=== PATIENT | female | born 1970 | race Caucasian/White ===

== ENCOUNTER 2017-05-19 11:42 | Emergency (ER) | payer OTHER ==
[~2017-05-19] VITALS: Ht 158.8 cm; Wt 68.5 kg
[~2017-05-19 11:42] MED LIST: ALBUAER9 INH; ASPI81TA21 PO; ATOR80TA PO; BUPRTAB51 PO; CLOP1TAB54 PO; CYM/30 PO; DULO60CA44 PO; ERGO500037 PO; FENT50DI19 TD; HYDR-4079 PO; LPR25 PO; MECL50TA PO; MELA1TAB54 PO; MRLP17 PO; NORT50CA PO; PANT40TA PO; RANI300T2 PO; SUCR1TAB29 PO
[2017-05-19 11:47] VITALS: TEMP 36.8; Ht 158.8 cm; Wt 68.5 kg
[2017-05-19] MEDS ORDERED: OMEG10007 PO (12:34)
[2017-05-19] MEDS ORDERED: NRN300 (12:34)
[2017-05-19] MEDS ORDERED: COEN10CA5 (12:34)
[2017-05-19 13:02] LABS: BASO % 0.2 %; BASO ABS # 0.03 K/uL (0-0.2); EOS % 0.7 %; EOS ABS # 0.09 K/uL (0-0.5); HEMATOCRIT 41.3 % (37-47); HEMOGLOBIN 14.1 g/dL (12.0-16.0); IG# 0.02 K/uL (0.00-0.02); LYMPH % 24.2 %; LYMPH ABS # 2.95 K/uL (1.2-3.4); MEAN CELL VOLUME 87.5 fL (80-100); MEAN CORPUSCULAR HEMOGLOBIN 29.9 pg (25-34); MEAN CORPUSCULAR HGB CONC 34.1 g/dl (32-36); MONO % 8.3 %; MONO ABS # 1.01 K/uL (0.11-0.59); NEUT % 66.4 %; NEUT ABS # 8.11 K/uL (1.4-6.5); PLATELET COUNT 261 K/uL (130-400); RED CELL DISTRIBUTION WIDTH CV 13.2 % (11.5-14.5); RED CELL DISTRIBUTION WIDTH SD 42.3 fL (36.4-46.3); WHITE BLOOD COUNT 12.21 K/uL (4.8-10.8)
--- NOTE | 2017-05-19 13:22 | DIAGNOSTIC IMAGING REPORT ---
L KNEE 3 VIEWS CLINICAL HISTORY: left knee pain/effusion pain COMPARISON: None. DISCUSSION: The bones and joint spaces appear intact. There is no evidence of fracture, dislocation or bony disease. Joint effusion. IMPRESSION: Joint effusion. Otherwise negative study. The above report was generated using voice recognition software. It may contain grammatical, syntax or spelling errors. Electronically signed by: Robert Foster M.D. 05/19/2017 1:21 PM Dictated Date/Time: 05/19/2017 1:20 PM
[2017-05-19 13:24] LABS: CALCIUM 9.2 mg/dl (8.5-10.1); CREATININE 0.55 mg/dl (0.60-1.20); POTASSIUM 3.6 mmol/L (3.5-5.1); URIC ACID 3.7 mg/dl (2.6-7.2)
[2017-05-19] MEDS ORDERED: DOXYCYCLINE HYCLATE 100 MG CAP PO STA (14:05)
[2017-05-19] MEDS ORDERED: DOXY100C PO (14:07)
--- NOTE | 2017-05-19 14:07 | EMERGENCY ROOM VISIT NOTE ---
ED Visit Note First contact with patient: 12:09 CHIEF COMPLAINT: Left knee pain and swelling HISTORY OF PRESENT ILLNESS: This 46-year-old female patient presents to the emergency department complaining of 2-3 week long history of left knee pain. She states approximately 1 week ago, she began experiencing swelling, and the swelling significantly worsened today. She denies any injury or redness. She has not seen her PCP. She states she is unable to flex the knee due to pain. The patient does chronically take hydrocodone and fentanyl patches, and states her pain persists despite these medications. She denies any known tick bites, denies any history of gout. She describes the pain as a pressure sensation, and rates it 7/10. There is no calf tenderness or redness. Patient has not recently traveled. The patient is a current smoker, but uses no hormone replacement therapy. There is been no previous injury to this knee. The patient denies bruising. There is pain superiorly to the knee joint. The patient states they are able to walk on it with the assistance of cane. No numbness or tingling. No ankle, foot or hip pain. She does report significant fatigue, malaise, and myalgias over the past few weeks. REVIEW OF SYSTEMS: A 6 system review of systems was completed with positives and pertinent negatives listed in the HPI. ALLERGIES: None PMH: Chronic pain SOCIAL HISTORY: The patient lives locally with family. She denies drug, alcohol use. The patient admits to smoking 1 pack of cigarettes per day. PHYSICAL EXAM: Vital Signs: Reviewed Nurse's notes, vital signs stable. GENERAL : This is a 46-year-old white female, no acute distress, but appears in pain, well-developed, well-nourished. MENTAL STATUS: Alert, oriented to person place and time, and cooperative. MUSCULOSKELETAL: The left knee is moderately swollen. There is no ecchymosis. There is joint effusion present. The patient is tender superiorly to the knee joint. There is mild joint line tenderness. The patella does appropriately subluxate. Range of motion is limited due to pain and swelling. Strength of the quads and hamstrings is 5/5. Ken's is negative. Louann's and Anterior Drawer tests are negative. There is discomfort , but no laxity with varus and valgus stressing. The foot and toes are warm and well-perfused. Dorsalis pedis pulse 2+. Sensation to pain and light touch is intact. Capillary refill less than 2 seconds. RADIOLOGY: L KNEE 3 VIEWS CLINICAL HISTORY: left knee pain/effusion pain COMPARISON: None. DISCUSSION: The bones and joint spaces appear intact. There is no evidence of fracture, dislocation or bony disease. Joint effusion. IMPRESSION: Joint effusion. Otherwise negative study. The above report was generated using voice recognition software. It may contain grammatical, syntax or spelling errors. Electronically signed by: Robert Foster M.D. 05/19/2017 1:21 PM Dictated Date/Time: 05/19/2017 1:20 PM EMERGENCY DEPARTMENT COURSE: I examined the patient. She presents with spontaneous knee pain with effusion, and denies any injury. X-rays of the left knee were reviewed by myself and read by radiology and reveal a joint effusion, but no bony abnormality. Labs showed elevated white blood cell count of 12, 000. ESR was elevated at 22. C-reactive protein was slightly elevated at 0.32 , and PRP was without significant renal, electrolyte abnormalities. Uric acid level was normal at 3.7. Lyme IgG and IgM testing were both positive. Western blot is pending. I discussed the findings with the patient at bedside. She was given an initial dose of doxycycline. The patient does already have chronic pain medication. She was encouraged to start the antibiotics and follow -up with orthopedics if no improvement in her symptoms within 1 week. She was encouraged to follow-up with her primary care provider regarding ongoing management of the Lyme disease. I did offer the patient crutches or a walker, but she states she is able to ambulate with her cane. The patient was agreeable to this plan of care. The patient was seen and assessed by Dr. Sagastume, who was in agreement with my assessment and plan. Discharge instructions reviewed. The patient was discharged home in good condition. I attest that I have personally reviewed the patient's current medication list. Patient was found to have normal blood pressure on screening and does not require follow-up. Etiologies such as soft tissue injury, fracture, dislocation, neurovascular compromise, compartment syndrome, Lyme disease, gout, effusion, abscess, infection, as well as others were entertained. DIAGNOSIS: Lyme arthritis of the left knee Current/Historical Medications Scheduled Aspirin Enteric Coated (Ecotrin Or Generic), 81 MG PO DAILY Atorvastatin (Lipitor), 80 MG PO DAILY Clopidogrel Bisulfate (Plavix), 75 MG PO DAILY Doxycycline Hyclate (Vibramycin), 100 MG PO BID Ergocalciferol (Vitamin D 93488 Unit), 50,000 UNIT PO WK Metoprolol Tartrate (Lopressor), 12.5 MG PO BID Pantoprazole Sodium (Protonix), 40 MG PO DAILY Scheduled PRN Hydrocodone/Acetaminophen 10MG/325MG ([place] 10MG/325MG), 1 TAB PO BID PRN for Pain Miscellaneous Medications Coenzyme Q10 (Ubidecarenone) (Co Q 10) Fish Oil ([place]-3), 1 CAP PO Gabapentin (Gabapentin) Allergies Coded Allergies: Methadone (Unverified Allergy, Intermediate, "deathly sick", 05/19/17) Vital Signs Date Time Temp Pulse Resp B/P (MAP) Pulse Ox O2 Delivery O2 Flow Rate FiO2 05/19/17 14:18 60 16 123/73 98 Room Air 05/19/17 11:47 36.8 76 16 120/79 97 Room Air Laboratory Results 05/19/17 12:50 Red Blood Count 4.72, Mean Corpuscular Volume 87.5, Mean Corpuscular Hemoglobin 29.9, Mean Corpuscular Hemoglobin Concent 34.1, Mean Platelet Volume 10.0, Neutrophils (%) (Auto) 66.4, Lymphocytes (%) (Auto) 24.2, Monocytes (%) (Auto) 8.3, Eosinophils (%) (Auto) 0.7, Basophils (%) (Auto) 0.2, Neutrophils # (Auto) 8.11, Lymphocytes # (Auto) 2.95, Monocytes # (Auto) 1.01, Eosinophils # (Auto) 0.09, Basophils # (Auto) 0.03 05/19/17 12:50 Test 05/19/17 12:50 White Blood Count 12.21 K/uL (4.8-10.8) Red Blood Count 4.72 M/uL (4.2-5.4) Hemoglobin 14.1 g/dL (12.0-16.0) Hematocrit 41.3 % (37-47) Mean Corpuscular Volume 87.5 fL (80-100) Mean Corpuscular Hemoglobin 29.9 pg (25-34) Mean Corpuscular Hemoglobin Concent 34.1 g/dl (32-36) Platelet Count 261 K/uL (130-400) Mean Platelet Volume 10.0 fL (7.4-10.4) Neutrophils (%) (Auto) 66.4 % Lymphocytes (%) (Auto) 24.2 % Monocytes (%) (Auto) 8.3 % Eosinophils (%) (Auto) 0.7 % Basophils (%) (Auto) 0.2 % Neutrophils # (Auto) 8.11 K/uL (1.4-6.5) Lymphocytes # (Auto) 2.95 K/uL (1.2-3.4) Monocytes # (Auto) 1.01 K/uL (0.11-0.59) Eosinophils # (Auto) 0.09 K/uL (0-0.5) Basophils # (Auto) 0.03 K/uL (0-0.2) RDW Standard Deviation 42.3 fL (36.4-46.3) RDW Coefficient of Variation 13.2 % (11.5-14.5) Immature Granulocyte % (Auto) 0.2 % Immature Granulocyte # (Auto) 0.02 K/uL (0.00-0.02) Erythrocyte Sedimentation Rate 22 mm/hr (0-21) Anion Gap 5.0 mmol/L (3-11) Est Creatinine Clear Calc Drug Dose 114.9 ml/min Estimated GFR () 128.6 Estimated GFR (Non- 110.9 BUN/Creatinine Ratio 20.3 (10-20) Uric Acid 3.7 mg/dl (2.6-7.2) Calcium Level 9.2 mg/dl (8.5-10.1) C-Reactive Protein 0.32 mg/dl (0-0.29) Lyme Disease IgG Antibody POS (NEG) Medications Administered Medications (Trade) Dose Ordered Sig/Jaye Route Start Time Stop Time Status Last Admin Dose Admin Doxycycline Hyclate (Vibramycin Cap) 100 mg NOW STAT PO 05/19/17 14:05 05/19/17 14:06 DC 05/19/17 14:13 100 MG Departure Information Impression Primary Impression: Lyme arthritis of knee Dispostion Home / Self-Care Condition GOOD Prescriptions Doxycycline Hyclate (VIBRAMYCIN) 100 Mg Cap 100 MG PO BID for 21 Days, #42 CAP Prov: Kenisha RecioJANINE 05/19/17 Referrals Robert Peña M.D. (PCP) Beka Mathews D.O. Patient Instructions ED Lyme Disease, [facility] Additional Instructions You were seen in the emergency department today for left knee swelling and pain. Lyme disease testing here in the ED was positive. You have been prescribed Doxycycline to be taken as prescribed for 21 days. This is an antibiotic. All antibiotics have the potential to cause diarrhea. Stop this medication and contact a medical provider if you were to develop any significant adverse side effects including: wheezing, shortness of breath, passing out, vomiting, or a diffuse rash. Always take antibiotics as directed and COMPLETE the ENTIRE course regardless of the improvement of your symptoms. Be sure to eat prior to taking this antibiotic. Do not eat or drink milk products immediately before taking this medication. Make sure that the pill is completely swallowed each time. Protect yourself with sunscreen while on this antibiotic as it increases your skin's sensitivity to the light and cause bad sunburns. Please take your regularly prescribed pain medication. Use the cane you have to help with ambulation. Follow-up with orthopedics if no improvement within 1 week. Please follow-up with your primary care provider regarding ongoing treatment and management of the Lyme disease. Return to the emergency department for any significantly worsening pain, swelling, redness, fevers, chest pain, difficulty breathing, or other concerning symptoms.
[2017-05-19 14:18] VITALS: BP 123/73; PULSE 60; O2SAT 98
--- NOTE | 2017-05-19 14:58 | EMERGENCY ROOM VISIT NOTE ---
ED Visit Note First contact with patient: 12:09 I have personally seen and evaluated the patient with the physician geriatric nurse assistant. I agree with the diagnostic/management decisions and have personally been involved in these decisions and agree with the diagnosis.
== END 2017-05-19 14:27 | disposition home or self-care (01) ==
LOC: C.EDB 11:44 → C.EDD 14:27
DX: A69.23 Arthritis due to Lyme disease (principal); Z79.891 Long term (current) use of opiate analgesic; F17.200 Nicotine dependence, unspecified, uncomplicated; Z88.6 Allergy status to analgesic agent

== ENCOUNTER 2023-06-09 02:13 | Inpatient (IN) ==
[2023-06-09 02:41] LABS: iSTAT Creatinine 1.2 mg/dl (0.6-1.3); iSTAT Hemoglobin 13.3 g/dl (12.0-16.0); iSTAT Ionized Calcium 1.11 mmol/l (1.12-1.32); iSTAT Potassium 3.7 mmol/L (3.3-5.0)
[2023-06-09] MEDS: ETOMIDATE 2 MG/ML 20 ML VIAL IV ONE (02:48)
--- NOTE | 2023-06-09 02:48 | Cardiology Consultation ---
Date of Consultation June 09, 2023 Assessment & Plan (1) STEMI (ST elevation myocardial infarction): Presentation consistent with Anterior STEMI and recommend proceeding with emergent cardiac catheterization and likely primary PCI. No apparent contraindications to procedure. Discussed risks, benefits, alternatives of procedure with and they are willing to proceed. Further recommendations pending findings of coronary angiography. History of Present Illness History of Present Illness Ms. Fletcher is a 52-year-old woman here with acute chest pain and ECG concerning for acute WI. Patient seen emergently in the ED after heart alert activated en route. Past cardiac history remarkable for inferior STEMI 07/2011 treated with PCI with 2 BMS (2.25 x 22, 2.25 x 8) at [facility]. Other medical issues include remote perforated gastric ulcer with prior surgery, borderline DM, chronic back pain with DDD and prior surgery, dyslipidemia, depression. Long history of tobacco abuse. Family history of premature CAD. History obtained from family and Dr. Contreras in ED. Active at baseline and usual state of health prior to going to bed (per had a large meal around 12AM). heard patient moaning from pain and clutching her chest around 1 AM. Had sustained low systolic BPs in 50s on arrival with EMS. VTx1 en route. Pre-hospital ECG showed sinus rhythm with anterior ST elevations. In ED patient awake but non-communicative, just moaning. BP back >100s. Electrically stable. Stat CT showed no dissection. Electively intubated in ED for airway protection prior to cardiac cath. Allergies Allergy/AdvReac Type Severity Reaction Status Date / Time methadone Allergy Intermediate "deathly Verified 06/09/23 02:18 sick" Home Medications Medication Instructions Recorded Confirmed Type aspirin 81 mg tablet,delayed 162 mg PO DAILY 10/08/20 06/09/23 History release Patient History Social History Smoking Status: Unknown if ever smoked Feels Safe at Home: Yes Review of Systems Review of Systems: Unobtainable due to reduced consciousness Physical Exam Constitutional: + obese Eyes: + anicteric sclerae Respiratory: normal respiratory effort Auscultation: + diminished lung sounds Cardiovascular: Rate/Rhythm: regular rate and regular rhythm Gastrointestinal (Abdomen): Percussion/Palpation: abdomen soft Skin: no rashes Psychiatric: Orientation: + uncooperative Results & Data Vital Signs (Past 12 Hours) Vital Signs Temp Pulse Resp BP 06/09/23 02:20 78 06/09/23 02:15 96.7 F L 64 20 138/101 H PG Care Time/CCT Total # of Minutes Spent Total Time Spent with Patient: Total time spent is greater than 50% in coordination of care (as documented) at patient's floor/unit and/or counseling patient: Coding Level of Care Code 16236 ER DEPT VISIT HIGH LVL 5 Diagnoses STEMI (ST elevation myocardial infarction) I21.3
[2023-06-09] MEDS: SUCCINYLCHOLINE CHLORIDE 20 MG/ML 10 ML VIAL IV STA (02:49)
[2023-06-09] MEDS: OPTIRAY 320 125ml IV ONE (02:51)
[2023-06-09] MEDS: MIDAZOLAM HCL 5 MG/ML 1 ML VIAL IV STA (02:54)
--- NOTE | 2023-06-09 03:23 | CT Scan Report ---
CT angio chest dissec wo/w con CLINICAL HISTORY: CP TECHNIQUE: Multidetector row helical CT of the chest was performed before and after injection of IV c ontrast. Coronal, sagittal, and MIP reformations were obtained. Automated dose lowering techniques an d/or adjustment according to patient size were utilized for this exam. Comparison: None available at the time of this dictation. FINDINGS: Lungs and pleura: Atelectasis versus scarring is seen in the dependent portions of the lungs. There i s a 3 mm pleural-based nodule in the right middle lobe (series 4 image 134). Heart and pericardium: Cardiomegaly is seen with biatrial enlargement. Vessels: Severe atherosclerotic changes in the aorta and coronary arteries. No pulmonary embolus is s een. Although exam is not optimally timed, no evidence of aortic dissection or other acute aortic inj ury. Mediastinum and amanda: Subcentimeter lymph nodes are seen. Chest wall and lower neck: Enlarged heterogeneous thyroid is seen. Abdomen: For findings below the diaphragm, please refer to CT of the abdomen dated the same. Bones: Degenerative changes in the thoracic spine. IMPRESSION: 1. No acute abnormality and in particular no evidence of acute aortic injury. 2. Tiny pulmonary nodule as above. 3. Enlarged heterogeneous thyroid. If not previously evaluated a nonemergent thyroid ultrasound can be performed. ACT 112: Positive. There are findings on this exam that require communication between the performing entity and the patient following Patient Test Result Information Act ([place] Act 112) guidelines. Electronically signed by: Shun Brewer M.D. 06/09/2023 3:21 AM
--- NOTE | 2023-06-09 03:32 | CT Scan Report ---
CT angio abdomen pelvis w con CLINICAL HISTORY: cp TECHNIQUE: Multidetector row helical CT of the abdomen and pelvis was performed, following intravenou s administration of iodinated contrast. No oral contrast was administered. Automated dose lowering te chniques and/or adjustment according to patient size were utilized for this exam. Coronal and sagitta l reformations were obtained. MIP and 3D volume rendered reconstructions were obtained. CT DOSE: 2754.17 mGy.cm Comparison: Comparison is made to CT abdomen pelvis 10/05/2009 FINDINGS: Lower chest: For findings above the diaphragm, please see CT chest performed same day. Liver: Unremarkable. No focal lesions are seen. Gallbladder and biliary tree: Patient is status post cholecystectomy. No intra- or extrahepatic bilia ry ductal dilation. Pancreas: Unremarkable, no focal lesions. Spleen: Unremarkable. Adrenals: Unremarkable. Kidneys and ureters: Nonobstructive nephrolithiasis is seen. Likely renal cysts are seen. Bladder: Unremarkable. Reproductive organs: Unremarkable. Bowel: The appendix is normal. Lymph nodes Retroperitoneal: Subcentimeter lymph nodes are noted. Pelvic: Unremarkable. Mesenteric: Unremarkable. Peritoneum: Normal. Abdominal wall: Unremarkable. Bones: Degenerative changes in the visualized spine. CT angiogram: The abdominal aortic contours appear intact without evidence of aneurysmal dilatation a nd/or dissection. There is evidence of scattered atherosclerotic calcifications of the abdominal aor ta and its major branches. The origins of the celiac axis, superior mesenteric, inferior mesenteric and bilateral renal arteries are patent. IMPRESSION: No acute abnormalities. ACT 112: Negative or not required by law. Electronically signed by: Shun Brewer M.D. 06/09/2023 3:30 AM
[2023-06-09] MEDS ORDERED: SODIUM BICARB 8.4% INJ 50 MEQ/50 ML SYR IV ONE (03:37)
[2023-06-09] MEDS ORDERED: CALCIUM CHLORIDE 10% 10 ML SYR IV ONE (03:37)
[2023-06-09] MEDS ORDERED: ATROPINE SULFATE 0.1 MG/ML 10ML SYR IV ONE (03:37)
[2023-06-09] MEDS ORDERED: MIDAZOLAM HCL 5 MG/ML 2ML VIAL IV ONE (03:37)
[2023-06-09] MEDS ORDERED: SODIUM CHLORIDE 0.9% PF INJ 10 ML VIAL IV ONE (03:37)
[2023-06-09] MEDS ORDERED: ETOMIDATE 2 MG/ML 20 ML VIAL IV ONE (03:37)
[2023-06-09] MEDS ORDERED: MAG SULFATE 50% 1GM/2ML VIAL IV ONE (03:37)
[2023-06-09] MEDS ORDERED: SUCCINYLCHOLINE CHLORIDE 20 MG/ML 10 ML VIAL IV ONE (03:37)
[2023-06-09] MEDS ORDERED: SODIUM CHLORIDE 0.9% 10ML FLUSH IV ONE (03:37)
[2023-06-09 03:40] LABS: Alanine Aminotransferase 17 U/L (7-52); Albumin Globulin Ratio 1.5 (0.9-2); Albumin Level 3.9 gm/dl (3.4-5.0); Alkaline Phosphatase 71 U/L (34-104); BUN Creatinine Ratio 16.8 (10-20); Bilirubin,Total 0.3 mg/dl (0.2-1.0); Blood Urea Nitrogen 18 mg/dl (6-23); Calcium 8.8 mg/dl (8.6-10.3); Carbon Dioxide 26 mmol/L (21-32); Chloride 106 mmol/L (98-107); Creatinine Clr Calc Pharmacy 60.8 ml/min; Est GFR (African American) 68.2 ml/min; Est GFR (Non-African American) 58.8 ml/min; Globulin 2.6 gm/dl (2.5-4.0); Glucose 197 mg/dl (70-99(Fasting)); Lipase 32 U/L (11-82); Total Protein 6.5 gm/dl (6.0-8.3); Troponin I High Sensitivity 539.3 pg/ml (0-14)
[2023-06-09 03:47] LABS: Partial Thromboplastin Ratio 0.7; Partial Thromboplastin Time 20 Seconds (21-31); Prothrombin Time 11.1 Seconds (9.0-12.0)
[2023-06-09 03:50] LABS: Basophils # (auto) 0.04 K/uL (0.00-0.20); Basophils % (auto) 0.5 %; Eosinophils # (auto) 0.14 K/uL (0.00-0.50); Eosinophils % (auto) 1.6 %; Hematocrit (blood only) 39.7 % (37.0-47.0); Hemoglobin 12.6 g/dl (12.0-16.0); Immature Granulocytes # (auto) 0.02 K/uL (0.01-0.20); Immature Granulocytes % (auto) 0.2 %; Lymphocytes # (auto) 3.68 K/uL (1.20-3.40); Lymphocytes % (auto) 41.9 %; Mean Corpuscular Hemoglobin 27.6 pg (25.0-34.0); Mean Corpuscular Hgb Conc 31.7 g/dL (32.0-36.0); Mean Corpuscular Volume 86.9 fL (80.0-100.0); Mean Platelet Volume 11.2 fL (9.4-12.4); Monocytes # (auto) 0.36 K/uL (0.11-0.59); Monocytes % (auto) 4.1 %; Neutrophils # (auto) 4.55 K/uL (1.40-6.50); Neutrophils % (auto) 51.7 %; Platelet Count 230 K/uL (130-400); Platelet Estimate Normal (Normal); RDW Coefficient of Variation 14.4 % (11.5-14.5); Red Blood Count 4.57 M/uL (4.20-5.40); White Blood Count 8.79 K/ul (4.8-10.8)
[2023-06-09] MEDS: niCARdipine HCL INJ 2.5 MG/ML 10 ML AMP ONE (04:34)
[2023-06-09] MEDS: NITROGLYCERIN/D5W 100MCG/ML 20ML SYR ONE (04:35)
[2023-06-09 04:45] LABS: Base Excess VBG -4.1 mEq/L; HCO3 VBG 23 mmol/L; PCO2 VBG 49 mmHg (38-50); PO2 VBG 90 mmHg; pH VBG 7.28 (7.36-7.41)
[2023-06-09 04:47] LABS: iSTAT Arterial Blood Gas HCO3 23 meg/L (19-24); iSTAT Arterial Blood Gas pCO2 53 mmHg (35-46); iSTAT Arterial Blood Gas pH 7.25 (7.35-7.45); iSTAT Arterial Blood Gas pO2 391 mmHg (80-95); iSTAT Carbon Dioxide 25 mmol/L (24-31); iSTAT Hematocrit 37 % (37-47); iSTAT Hemoglobin 12.6 g/dl (12.0-16.0); iSTAT Potassium 3.8 mmol/L (3.3-5.0); iSTAT Sodium 137 mmol/L (135-144)
[2023-06-09] MEDS ORDERED: MIDAZOLAM HCL 1 MG/ML 2ML VIAL ONE (04:47)
[2023-06-09] MEDS ORDERED: TICAGRELOR 90 MG TAB ONE (04:50)
[2023-06-09] MEDS: MIDAZOLAM HCL 1 MG/ML 2ML VIAL ONE ×2 (04:59→05:07)
[2023-06-09] MEDS: LIDOCAINE 1% LOCAL 20 ML VIAL ONE (05:00)
[2023-06-09] MEDS: RAPID SEQUENCE INDUCTION BAG ONE (05:00)
[2023-06-09] MEDS: fentaNYL citrate PF 100 MCG/2 ML VIAL ONE (05:01)
[2023-06-09] MEDS: NOREPINEPHRINE/D5W 4 MG/250 ML IV ONE (05:02)
[2023-06-09] MEDS: EPTIFIBATIDE 2 MG/ML 10 ML VIAL (CATH LAB USE ONLY) IV ONE (05:03)
[2023-06-09] MEDS: PROPOFOL IV EMULSION 10 MG/ML 100 ML VIAL (CATH LAB USE ONLY) IV ONE (05:03)
[2023-06-09] MEDS ORDERED: FUROSEMIDE 40 MG/4 ML VIAL IV ONE (05:04)
[2023-06-09] MEDS: AMIODARONE 150MG / 100ML D5W (CATH LAB USE ONLY) IV ONE (05:06)
[2023-06-09] MEDS: HEPARIN (PORCINE) 1000 UNIT/ML 10 ML (CATH LAB USE ONLY) ONE ×2 (05:06→05:17)
[2023-06-09] MEDS: AMIODARONE 360MG / 200ML D5W (CATH LAB USE ONLY) IV ONE ×2 (05:07)
[2023-06-09 05:08] LABS: Magnesium 2.5 mg/dl (1.7-2.4); Potassium 2.9 mmol/L (3.5-5.1)
[2023-06-09] MEDS: OPTIRAY 350 ONE (05:08)
[2023-06-09] MEDS: DOPamine 400MG / 250ML D5W IV ONE (05:08)
[2023-06-09] MEDS: ONDANSETRON INJ 2 MG/ML 2 ML VIAL ONE (05:09)
--- NOTE | 2023-06-09 05:28 | Cardiac Catheterization ---
[facility] Data: Audio Visual Collections Coordinator Cardiac Status Clinical evaluation leading to the procedure CAD Presenation: STEMI Anginal Classification: CCS IV Diagnostic Physicians Name: Alberto Hair MD Closure Device Recommendations: PCI without planned CABG Cardiac Cath Procedure Full Procedure Date June 09, 2023 Pre-Procedure Diagnosis Pre-Procedure Diagnosis: STEMI AUC Score AUC Score: 9 Post-Procedure Diagnosis Post-Procedure Diagnosis: Severe CAD and Successful PCI Procedure(s) Performed Procedure(s) Performed: Coronary Angiography, Left Heart Cath, Right Heart Cath, Drug Eluting Stent, Ultrasound Guided Vascular Access and Procedure (Impella CP placement) Structural Steel Engineer Alberto Hair MD Glass Artist(s) Mary Lou Estimated Blood Loss Estimated Blood Loss: 40 Medication(s) Medication(s): Fentanyl, Heparin, Integrilin, Lidocaine 1%, Nicardipine, Nitroglycerin, Norepinephrine and Versed Medication(s): Propofol, Amiodarone, Ticagrelor, furosemide Summary of Findings Indication: STEMI/Heart Alert Access: 6 Fr right common femoral artery, 7 Fr right common femoral vein, 14 Fr left common femoral artery all under ultrasound guidance Catheters: EBU 3.5 guide, pigtail, diagnostic JR4 Findings: LM -normal caliber, no significant disease LAD -medium caliber, acute 100% earlymid occlusion after takeoff of D2. Medium D2 with 99% mid segment stenosis. Circumflex -medium caliber, 100% earlymid chronic occlusion. OM 2/3 fills retrograde via collaterals. 95% stenosis in AV groove continuation of circumflex. RCA -dominant, 100% earlymid occlusion. PDA fills retrograde via [id number] collaterals. -- PCI -- Antithrombotic therapy: Heparin, Integrilin, ticagrelor Procedure: Left main cannulated with EBU 3.5 guide Blood pressures downtrending and started on norepinephrine infusion Wood Milling Machine Operator 50 wire passed across lesion into distal LAD Earlymid LAD lesion predilated with 2.5 compliant balloon with reestablish RUBEN II flow Patient with increasing ventricular ectopy before VT/VF arrest Received defibrillation x 2 before CPR began CPR with additional 3 defibrillation, epi x 4, amiodarone, calcium, magnesium and 2 doses of bicarbonate. During CPR left LAUNDRY MACHINE OPERATOR access obtained under ultrasound guidance with placement of 5 Fr sheath, iliac angiogram obtained and additional heparin administered, along 14 Fr sheath placed over stiff wire Pigtail catheter placed across aortic valve and exchanged for 0.18 wire Impella CP device placed across aortic valve. With auto level 3.9 L/min cardiac output and maps in the 90s Had 1 additional episode of sustained VT requiring defibrillation post Impella placement During remainder of procedure maintained on norepinephrine, epinephrine drips Additional airline pilot 50 wire placed into D2 Mid D2 dilated with 2.0 balloon Dilated mid diagonal lesion stented with 2.25 x 18 mm [place] drug-eluting stent. Stent postdilated with stent balloon Proximal to mid LAD stented with 2.5 x 30 mm [place] drug-eluting stent Stent post-dilated with 3.0 noncompliant balloon Was unclear if mid circumflex was potentially acute on chronic occlusion. Attempt made to wire across occlusion into OM unsuccessful despite aid of 2.0 balloon. Angioplasty with 2.0 balloon into AV groove circumflex. Post procedure RUBEN 3 flow in LAD/diagonal, stents well expanded with minimal residual stenosis and no apparent cardiac complications. RA 22 RV 45/22 PA 42/33 (36) PAWP 32 PaSat 56% AoSat 91% [place] 4.6 L/min At completion of procedure maps in the 80s with Impella CP at P7. Epinephrine at 0.05 mg, norepinephrine 0.25 mcg/kg/min, and amiodarone/propofol drips. Received 1 dose IV Lasix. Arterial Closure: Mynx to right LAUNDRY MACHINE OPERATOR. Right CFV, left LAUNDRY MACHINE OPERATOR sheath sutured in place Summary: 1. Anterior NH. Acute 100% earlymid LAD occlusion 2. Severe non-culprit coronary artery disease -99% D2 100% earlymid chronic circumflex occlusion. OM's fill via left to left collaterals retrograde 100% mid RCA occlusion. PDA fills retrograde via [id number] collaterals. 3. VT/VF arrest 4. Cardiogenic shock 5. Postarrest elevated left and right-sided filling pressures. 6. Successful PCI of proximal to mid LAD with single drug-eluting stent (2.5 x 30 mm Ruben; postdilated with 3.0 NC). 7. Successful PCI of mid second diagonal with single drug-eluting stent (2.25 x 18 mm [place]). Recommendations: Plan to transfer to [facility] for further hemodynamic support/ICU management Loaded with ticagrelor 180 mg in Audio Visual Collections Coordinator Hemodynamics Rest Ao:: 87/64/73 Final Ao: 84/78/80 LV: -- Recommendations Recommendations: PCI without planned CABG Specimens Specimens: None Radiation Exposure (mGy) 3545 Contrast (mls) 150 Anesthesia Propofol, Versed/fentanyl 7749-6274 Procedural Complication(s) None [facility] I attest to the content of the Intraoperative Record and any orders documented therein. Any exceptions are noted below. [facility] Card Cath Procedure Codes Cardiac Catheterization Procedure 1: Cardiovascular Cath Procedures: 12769 Coronaries & LHC (+/-LV) & RHC Therapeutic Services & Ancillary Procedure 1: Cardiovascular Tx and Anc Procedures: 41505 Insertion of Percutaneous Ventricular Assist Device Procedure 2: Cardiovascular Tx and Anc Procedures: 53062 Ultrasonic Guidance Vascular Access Procedure 3: Cardiovascular Tx and Anc Procedures: 91249 Ultrasonic Guidance Vascular Access Procedure 4: Cardiovascular Tx and Anc Procedures: 26901 Code Blue/CPR Procedure 5: Cardiovascular Tx and Anc Procedures: 16784 Ultrasonic Guidance Vascular Access Moderate Sedation Procedure 1: Sedation/Anesthesia: 35758 Mod Sedation by the same physician;Init15 Min Child Age 5 & Up Procedure 2: Sedation/Anesthesia: 60461 Mod Sedation by the same physician; Ea [id number] Minutes Stenting Procedure 1: Cardiovascular Stent Procedures: 00341 Perc transcatheter placement of intracoronary stent(s), with ang PG Care Time/CCT Total # of Minutes Spent Total Time Spent with Patient: Total time spent is greater than 50% in coordination of care (as documented) at patient's floor/unit and/or counseling patient:
--- NOTE | 2023-06-09 06:51 | Emergency Department Note ---
Impression & Plan ST elevation (STEMI) myocardial infarction To the Pressure Washer with Dr. Hair ED Provider Note NAME: EMILY POSEY AGE: 52 SEX: Female INFORMANT: Patient's and EMS ED PROVIDER(S): Arin Martel DO CHIEF COMPLAINT: Chest pain PLAN: Disposition: To the Pressure Washer with Dr. Hair MEDICAL DECISION MAKING: This is a 52-year-old female patient who presents to the emergency department with a sudden onset of chest pain at home for which EMS was called. They found her to be significantly hypotensive with signs of STEMI on EKG. A heart alert was called from the field. She was transported to the hospital while moaning in pain receiving IV fluids and supplemental oxygen. Patient did have an episode of V. tach. Upon arrival, nursing staff made efforts to obtain IV access. The patient was able to communicate with me and tell me that she awoke with sudden discomfort in her chest. By past medical history she has had previous heart disease with a stent placed and has a GI ulcer which required surgery. On physical exam, the patient was pale and diaphoretic with reproducible significant epigastric abdominal pain. She was hemodynamically stable and went for a CT scan of the chest and abdomen to rule out aortic dissection. Upon returning from radiology, Dr. Hair had arrived and the decision was made that we would secure her airway in preparation to go to the Pressure Washer. Intubation was performed with RSI. The patient became slightly hemodynamically unstable after the procedure with a brief episode of bradycardia and hypotension. She rebounded from this and went to the cardiac Pressure Washer. Laboratory studies revealed no leukocytosis or significant anemia. Renal function was normal. Electrolytes were unremarkable. Troponin was elevated at 539 and glucose was 197. While in the Pressure Washer, a CODE BLUE was called. I arrived at the bedside to find CPR in progress. I assisted the Pressure Washer staff with ACLS drug administration while Dr. Hair continued Impella placement and PCI. The patient was hemodynamically stabilized. The decision was made to transfer the patient by helicopter to [facility] in [place]. I discussed the case initially with Dr. Dewey from interventional cardiology in [place] who agreed the patient would be best served at their facility. He requested that I speak with Dr. Senior from cardiology who accepted the patient in transfer to the CCU. Care/management discussed with: ED psychiatric sample case porter, the patient's , Dr. Neha Wu interventional cardiology Dr. Roblero interventional cardiology Dr. Donaldson cardiology Triage Nursing notes: reviewed and agree with them. Vital Signs: reviewed and remarkable for hypotension and bradycardia Additional History obtained from: EMS and the patient's Chronic Medical/Social Conditions affecting care: COPD and previous PCI with stent placement Differential Diagnosis: STEMI, aortic dissection, perforated ulcer, NSTEMI Diagnostics, independently interpreted by me: ECG: Normal sinus rhythm at a rate of 78 with PVCs. There is significant ST segment elevation in leads V 2, V3, V4 Cardiac Monitoring: Sinus bradycardia at a rate of 58 Imaging studies: Portable chest x-ray: As per my independent interpretation- postintubation p-[id number] tube was in the right mainstem. It was pulled back by by 3 cm. We shot another image and found it to be at the frantz. It was pulled back by another 3 cm. There was cardiomegaly and mild pulmonary vascular congestion noted on the x- ray. HPI: 52 year old Female arrives for evaluation of chest pain. Patient was in her usual state of health this evening when her heard her moaning while lying on the couch. He went to her side and noted that she was complaining of severe chest discomfort. He plan to take her to the hospital as he tried to walk her to their vehicle, she collapsed to the floor because of the pain. EMS was called. PAST MEDICAL HISTORY: COPD, previous coronary artery disease-PCI with stent placement SOCIAL HISTORY: Patient is a smoker, lives with her and they care for two 4-year-old twins as the explained to me, she gets very little sleep HOME MEDICATIONS: See list ALLERGIES: See list VITALS: See Below PHYSICAL EXAMINATION: HEENT: Head - normocephalic and atraumatic. Pupils are equal, round, and reactive to light. Extraocular eye muscles are intact, and sclera are anicteric. Nose - moist nasal mucosa without discharge. Mouth - dry buccal mucosa. Neck: Supple; no obvious JVD Heart: Regular rate and rhythm. There is a normal S1 and S2 with no murmurs, clicks, or gallops appreciated. Lungs: Clear to auscultation bilaterally with diminished breath sounds bilaterally Abdomen: Soft, exquisitely tender to palpation in the epigastrium. there are no palpable pulsatile masses or hepatosplenomegaly. There is significant guarding and rebound. Extremities: No evidence of cyanosis, clubbing, or edema. There are easily palpable peripheral pulses. Skin: Pale and extremely cold Endotracheal Intubation Indication: Respiratory failure. The patient was on 100% oxygen via NRB prior to the procedure. Suction, airway equipment, RSI drugs, respiratory equipment, and appropriate personnel were prepared prior to the initiation of the procedure. A time out was taken. Induction was performed with succinylcholine and etomidate. After observing the clinical benefit of the medications, the airway was easily visualized utilizing a glide scope. A 7.5 size ETT tube was placed atraumatically to 25 cm using standard technique. The cuff inflated without signs of malfunction. There was, positive colormetric change, no gastric sounds, and post procedure pulse oximetry was 92%. The left-sided breath sounds were quite faint so that the endotracheal tube was pulled back. They became more equal. Post intubation sedation was administered using Versed. There were no complications. Emergency department course: The patient was evaluated emergently in room A1. A complete history was obtained from EMS and physical was performed. Nursing staff works with establishing an IV lock. Patient was placed on a nonrebreather mask at 15 L. I obtained history from the patient's who arrived in the emergency department. Patient's vitals are stable at this time. She went for CT scan of the abdomen and chest to rule out aortic dissection. Pressure Washer team arrived in the emergency department. Endotracheal intubation was performed with RSI. Patient did have an episode of bradycardia and hypotension. We had prepared to do push dose epi but the patient's pulse rebounded as did her blood pressure. The patient will go to the Pressure Washer with Dr. Hair. I did receive emergent readings on the CT of the chest and abdomen which showed no evidence of dissection. I have personally spent greater than 95 minutes of critical care time in the direct management of this patient. This includes bedside care, interpretation of diagnostic studies, and testing, discussion with consultants, patient, and family members, and other required patient management activities. This 95 minutes is in excess of all separately billable procedures. Past Med/Surg History Social History Smoking Status: Unknown if ever smoked Feels Safe at Home: Yes Allergies Allergies Allergy/AdvReac Type Severity Reaction Status Date / Time methadone Allergy Intermediate "deathly Verified 04/08/24 02:18 sick" Home Meds Home Medications Medication Instructions Recorded Confirmed aspirin 81 mg tablet,delayed 162 mg PO DAILY 10/08/20 06/09/23 release Results & Data (ED) Vital Signs Vital Signs - 24 hr 06/09/23 02:15 06/09/23 02:20 06/09/23 02:46 Temperature 35.9 C L Temperature Source Rectal Pulse Rate 64 78 Pulse Rate [Apical] 94 H Pulse Rhythm Regular Pulse Rhythm [Apical] Respiratory Rate 20 22 Respiratory Depth Normal Blood Pressure 138/101 H Blood Pressure [Left Arm] 105/73 Blood Pressure Mean 113 Blood Pressure Mean [Left Arm] 83 Pulse Oximetry Oxygen Delivery Method Oxygen Flow Rate Fraction of Inspired Oxygen Sepsis Recent Fever Within 48 Hours No Sepsis New/Unexplained Change in Mental Status No Sepsis Action Taken by Nursing No Action Required End Tidal CO2 (18-54mmHg) 06/09/23 02:50 06/09/23 02:59 06/09/23 05:36 Temperature Temperature Source Pulse Rate Pulse Rate [Apical] 92 H 90 Pulse Rhythm Pulse Rhythm [Apical] Regular Regular Respiratory Rate 20 16 26 H Respiratory Depth Blood Pressure Blood Pressure [Left Arm] 99/78 L 127/69 Blood Pressure Mean Blood Pressure Mean [Left Arm] 85 88 Pulse Oximetry 99 100 Oxygen Delivery Method Non-rebreather Mechanical Vent Oxygen Flow Rate 15 Fraction of Inspired Oxygen 100 Sepsis Recent Fever Within 48 Hours Sepsis New/Unexplained Change in Mental Status Sepsis Action Taken by Nursing End Tidal CO2 (18-54mmHg) 35 Laboratory Data 06/09/23 02:27 06/09/23 04:35 Lab Results 06/09/23 06/09/23 06/09/23 Range/Units 02:27 02:30 03:20 WBC 8.79 (4.8-10.8) K/ul RBC 4.57 (4.20-5.40) M/uL Hgb 12.6 (12.0-16.0) g/dl POC Hgb 13.3 12.6 (12.0-16.0) g/dl Hct 39.7 (37.0-47.0) % POC Hct 39 37 (37-47) % MCV 86.9 (80.0-100.0) fL MCH 27.6 (25.0-34.0) pg MCHC 31.7 L (32.0-36.0) g/dL RDW Std Deviation 46.0 (36.4-46.3) fL RDW Coeff of Sariah 14.4 (11.5-14.5) % Plt Count 230 (130-400) K/uL MPV 11.2 (9.4-12.4) fL Immature Gran % (Auto) 0.2 % Neut % (Auto) 51.7 % Lymph % (Auto) 41.9 % Ward % (Auto) 4.1 % Eos % (Auto) 1.6 % Baso % (Auto) 0.5 % Neut # (Auto) 4.55 (1.40-6.50) K/uL Lymph # (Auto) 3.68 H (1.20-3.40) K/uL Ward # (Auto) 0.36 (0.11-0.59) K/uL Eos # (Auto) 0.14 (0.00-0.50) K/uL Baso # (Auto) 0.04 (0.00-0.20) K/uL Immature Gran # (Auto) 0.02 (0.01-0.20) K/uL Platelet Estimate Normal (Normal) PT 11.1 (9.0-12.0) Seconds INR 1.0 (0.9-1.1) APTT 20 L (21-31) Seconds PTT Ratio 0.7 Activ Coag Time Kaolin (94-140) SECONDS POC pH 7.25 L (7.35-7.45) POC pCO2 53 H (35-46) mmHg POC pO2 391 H (80-95) mmHg POC HCO3 23 (19-24) evangelina/L POC Base Excess -4.0 (-9-1.8) evangelina/L POC ABG O2 Sat 100.0 H (90-95) % VBG pH (7.36-7.41) VBG pCO2 (38-50) mmHg VBG pO2 mmHg VBG HCO3 mmol/L VBG O2 Saturation % VBG Base Excess mEq/L POC Sodium 141 137 (135-144) mmol/L Sodium TNP POC Potassium 3.7 3.8 (3.3-5.0) mmol/L Potassium TNP POC Chloride 104 (101-112) mmol/L Chloride 106 (98-107) mmol/L Carbon Dioxide 26 (21-32) mmol/L POC Total CO2 27 25 (24-31) mmol/L Anion Gap TNP POC Anion Gap 16.0 (16-25) mmol/L POC BUN 19 H (7-18) mg/dl BUN 18 (6-23) mg/dl Creatinine 1.07 (0.6-1.2) mg/dl POC Creatinine 1.2 (0.6-1.3) mg/dl Est Cr Clr Drug Dosing 60.8 ml/min Est GFR ( Amer) 68.2 ml/min Est GFR (Non-Af Amer) 58.8 ml/min BUN/Creatinine Ratio 16.8 (10-20) Glucose 197 H (70-99(Fasting)) mg/dl POC Glucose (other) 191 H (70-99) mg/dl Calcium 8.8 (8.6-10.3) mg/dl POC Ioniz Calcium Yaa 1.11 L (1.12-1.32) mmol/l Magnesium (1.7-2.4) mg/dl Total Bilirubin 0.3 (0.2-1.0) mg/dl AST TNP ALT 17 (7-52) U/L Alkaline Phosphatase 71 (34-104) U/L Troponin I High Sens 539.3 H* (0-14) pg/ml Total Protein 6.5 (6.0-8.3) gm/dl Albumin 3.9 (3.4-5.0) gm/dl Globulin 2.6 (2.5-4.0) gm/dl Albumin/Globulin Ratio 1.5 (0.9-2) Lipase 32 (11-82) U/L 06/09/23 06/09/23 06/09/23 Range/Units 03:55 04:04 04:35 WBC (4.8-10.8) K/ul RBC (4.20-5.40) M/uL Hgb (12.0-16.0) g/dl POC Hgb 17.3 H (12.0-16.0) g/dl Hct (37.0-47.0) % POC Hct 51 H (37-47) % MCV (80.0-100.0) fL MCH (25.0-34.0) pg MCHC (32.0-36.0) g/dL RDW Std Deviation (36.4-46.3) fL RDW Coeff of Sariah (11.5-14.5) % Plt Count (130-400) K/uL MPV (9.4-12.4) fL Immature Gran % (Auto) % Neut % (Auto) % Lymph % (Auto) % Ward % (Auto) % Eos % (Auto) % Baso % (Auto) % Neut # (Auto) (1.40-6.50) K/uL Lymph # (Auto) (1.20-3.40) K/uL Ward # (Auto) (0.11-0.59) K/uL Eos # (Auto) (0.00-0.50) K/uL Baso # (Auto) (0.00-0.20) K/uL Immature Gran # (Auto) (0.01-0.20) K/uL Platelet Estimate (Normal) PT (9.0-12.0) Seconds INR (0.9-1.1) APTT (21-31) Seconds PTT Ratio Activ Coag Time Kaolin 288 H (94-140) SECONDS POC pH 7.24 L (7.35-7.45) POC pCO2 47 H (35-46) mmHg POC pO2 350 H (80-95) mmHg POC HCO3 20 (19-24) evangelina/L POC Base Excess -8.0 (-9-1.8) evangelina/L POC ABG O2 Sat 100.0 H (90-95) % VBG pH 7.28 L (7.36-7.41) VBG pCO2 49 (38-50) mmHg VBG pO2 90 mmHg VBG HCO3 23 mmol/L VBG O2 Saturation 97.0 % VBG Base Excess -4.1 mEq/L POC Sodium 138 (135-144) mmol/L Sodium 139 POC Potassium 3.8 (3.3-5.0) mmol/L Potassium 2.9 L POC Chloride (101-112) mmol/L Chloride (98-107) mmol/L Carbon Dioxide (21-32) mmol/L POC Total CO2 21 L (24-31) mmol/L Anion Gap POC Anion Gap (16-25) mmol/L POC BUN (7-18) mg/dl BUN (6-23) mg/dl Creatinine (0.6-1.2) mg/dl POC Creatinine (0.6-1.3) mg/dl Est Cr Clr Drug Dosing ml/min Est GFR ( Amer) ml/min Est GFR (Non-Af Amer) ml/min BUN/Creatinine Ratio (10-20) Glucose (70-99(Fasting)) mg/dl POC Glucose (other) (70-99) mg/dl Calcium (8.6-10.3) mg/dl POC Ioniz Calcium Yaa (1.12-1.32) mmol/l Magnesium 2.5 H (1.7-2.4) mg/dl Total Bilirubin (0.2-1.0) mg/dl AST 360 H ALT (7-52) U/L Alkaline Phosphatase (34-104) U/L Troponin I High Sens 40798.4 H* D (0-14) pg/ml Total Protein (6.0-8.3) gm/dl Albumin (3.4-5.0) gm/dl Globulin (2.5-4.0) gm/dl Albumin/Globulin Ratio (0.9-2) Lipase (11-82) U/L 06/09/23 06/09/23 Range/Units 04:39 04:40 WBC (4.8-10.8) K/ul RBC (4.20-5.40) M/uL Hgb (12.0-16.0) g/dl POC Hgb 10.9 L 10.5 L (12.0-16.0) g/dl Hct (37.0-47.0) % POC Hct 32 L 31 L (37-47) % MCV (80.0-100.0) fL MCH (25.0-34.0) pg MCHC (32.0-36.0) g/dL RDW Std Deviation (36.4-46.3) fL RDW Coeff of Sariah (11.5-14.5) % Plt Count (130-400) K/uL MPV (9.4-12.4) fL Immature Gran % (Auto) % Neut % (Auto) % Lymph % (Auto) % Ward % (Auto) % Eos % (Auto) % Baso % (Auto) % Neut # (Auto) (1.40-6.50) K/uL Lymph # (Auto) (1.20-3.40) K/uL Ward # (Auto) (0.11-0.59) K/uL Eos # (Auto) (0.00-0.50) K/uL Baso # (Auto) (0.00-0.20) K/uL Immature Gran # (Auto) (0.01-0.20) K/uL Platelet Estimate (Normal) PT (9.0-12.0) Seconds INR (0.9-1.1) APTT (21-31) Seconds PTT Ratio Activ Coag Time Kaolin (94-140) SECONDS POC pH 7.25 L 7.28 L (7.35-7.45) POC pCO2 58 H 48 H (35-46) mmHg POC pO2 35 L 68 L (80-95) mmHg POC HCO3 25 H 23 (19-24) evangelina/L POC Base Excess -2.0 -4.0 (-9-1.8) evangelina/L POC ABG O2 Sat 56.0 L 91.0 (90-95) % VBG pH (7.36-7.41) VBG pCO2 (38-50) mmHg VBG pO2 mmHg VBG HCO3 mmol/L VBG O2 Saturation % VBG Base Excess mEq/L POC Sodium 141 143 (135-144) mmol/L Sodium POC Potassium 3.0 L 2.9 L (3.3-5.0) mmol/L Potassium POC Chloride (101-112) mmol/L Chloride (98-107) mmol/L Carbon Dioxide (21-32) mmol/L POC Total CO2 27 24 (24-31) mmol/L Anion Gap POC Anion Gap (16-25) mmol/L POC BUN (7-18) mg/dl BUN (6-23) mg/dl Creatinine (0.6-1.2) mg/dl POC Creatinine (0.6-1.3) mg/dl Est Cr Clr Drug Dosing ml/min Est GFR ( Amer) ml/min Est GFR (Non-Af Amer) ml/min BUN/Creatinine Ratio (10-20) Glucose (70-99(Fasting)) mg/dl POC Glucose (other) (70-99) mg/dl Calcium (8.6-10.3) mg/dl POC Ioniz Calcium Yaa (1.12-1.32) mmol/l Magnesium (1.7-2.4) mg/dl Total Bilirubin (0.2-1.0) mg/dl AST ALT (7-52) U/L Alkaline Phosphatase (34-104) U/L Troponin I High Sens (0-14) pg/ml Total Protein (6.0-8.3) gm/dl Albumin (3.4-5.0) gm/dl Globulin (2.5-4.0) gm/dl Albumin/Globulin Ratio (0.9-2) Lipase (11-82) U/L Administered Medications Discontinued Medications Amiodarone HCl/Dextrose (Amiodarone 150mg / 100ml D5w (Pressure Washer Use Only)) Confirm Administered Dose 150 mg IV .STK-MED ONE Stop: 06/09/23 03:30 Last Admin: 06/09/23 05:06 Dose: 150 mg Documented By: PEDRO Amiodarone HCl/Dextrose (Amiodarone 360mg / 200ml D5w (Pressure Washer Use Only)) Confirm Administered Dose 360 mg IV .STK-MED ONE Stop: 06/09/23 03:47 Last Admin: 06/09/23 05:07 Dose: 360 mg Documented By: PEDRO Amiodarone HCl/Dextrose (Amiodarone 360mg / 200ml D5w (Pressure Washer Use Only)) Confirm Administered Dose 360 mg IV .STK-MED ONE Stop: 06/09/23 03:48 Last Admin: 06/09/23 05:07 Dose: Not Given Documented By: PEDRO Dopamine HCl/Dextrose (Dopamine 400mg / 250ml D5w) Confirm Administered Dose 400 mg IV .STK-MED ONE Stop: 06/09/23 03:01 Last Admin: 06/09/23 05:08 Dose: Not Given Documented By: PEDRO Eptifibatide (Eptifibatide 2 Mg/Ml 10 Ml Vial (Pressure Washer Use Only)) Confirm Administered Dose 20 mg IV .STK-MED ONE Stop: 06/09/23 03:29 Last Admin: 06/09/23 05:03 Dose: 7.9 ml Documented By: PEDRO Etomidate (Etomidate 2 Mg/Ml 20 Ml Vial) 20 mg IV NOW ONE Stop: 06/09/23 02:49 Last Admin: 06/09/23 02:48 Dose: 20 mg Documented By: SILVIA Fentanyl Citrate (Fentanyl Citrate Pf 100 Mcg/2 Ml Vial) Confirm Administered Dose 100 mcg .ROUTE .STK-MED ONE Stop: 06/09/23 02:21 Last Admin: 06/09/23 05:01 Dose: 100 mcg Documented By: PEDRO Heparin Sodium (Porcine) (Heparin (Porcine) 1000 Unit/Ml 10 Ml (Pressure Washer Use Only)) Confirm Administered Dose 10,000 units .ROUTE .STK-MED ONE Stop: 06/09/23 02:20 Last Admin: 06/09/23 05:17 Dose: Not Given Documented By: PEDRO Heparin Sodium (Porcine) (Heparin (Porcine) 1000 Unit/Ml 10 Ml (Pressure Washer Use Only)) Confirm Administered Dose 10,000 units .ROUTE .STK-MED ONE Stop: 06/09/23 03:36 Last Admin: 06/09/23 05:06 Dose: Not Given Documented By: PEDRO Heparin Sodium/Sodium Chloride (Heparin In Nss Infusion 1000 Unit/500 Ml (2 U/Ml) Bag) Confirm Administered Dose 3,000 units IV .STK-MED ONE Stop: 06/09/23 02:21 Last Admin: 06/09/23 04:59 Dose: 3,000 units Documented By: PEDRO Ioversol (Optiray 350) Confirm Administered Dose 1 ml .ROUTE .STK-MED ONE Stop: 06/09/23 02:21 Last Admin: 06/09/23 05:08 Dose: 150 ml Documented By: PEDRO Ioversol (Optiray 320 125ml) 118 ml IV ONCE ONE Stop: 06/09/23 02:51 Last Admin: 06/09/23 02:51 Dose: 118 ml Documented By: STEPHANIE Lidocaine HCl (Lidocaine 1% Local 20 Ml Vial) Confirm Administered Dose 80 ml .ROUTE .STK-MED ONE Stop: 06/09/23 02:43 Last Admin: 06/09/23 05:00 Dose: 80 ml Documented By: PEDRO Midazolam HCl (Midazolam Hcl 1 Mg/Ml 2ml Vial) Confirm Administered Dose 2 mg .ROUTE .STK-MED ONE Stop: 06/09/23 02:20 Last Admin: 06/09/23 04:59 Dose: 5 mg Documented By: PEDRO Midazolam HCl (Midazolam Hcl 5 Mg/Ml 1 Ml Vial) 5 mg IV NOW STA Stop: 06/09/23 02:54 Last Admin: 06/09/23 02:54 Dose: 5 mg Documented By: SILVIA Midazolam HCl (Midazolam Hcl 1 Mg/Ml 2ml Vial) Confirm Administered Dose 2 mg .ROUTE .STK-MED ONE Stop: 06/09/23 04:23 Last Admin: 06/09/23 05:07 Dose: Not Given Documented By: PEDRO Miscellaneous (Rapid Sequence Induction Bag) Confirm Administered Dose 1 each N/A .STK-MED ONE Stop: 06/09/23 02:36 Last Admin: 06/09/23 05:00 Dose: 1 each Documented By: PEDRO Nicardipine HCl (Nicardipine Hcl Inj 2.5 Mg/Ml 10 Ml Amp) Confirm Administered Dose 25 mg .ROUTE .STK-MED ONE Stop: 06/09/23 02:21 Last Admin: 06/09/23 04:34 Dose: 25 mg Documented By: PEDRO Nitroglycerin/Dextrose (Nitroglycerin/D5w 100mcg/Ml 20ml Syr) Confirm Administered Dose 2,000 mcg .ROUTE .STK-MED ONE Stop: 06/09/23 02:21 Last Admin: 06/09/23 04:35 Dose: 2,000 mcg Documented By: PEDRO Norepinephrine Bitartrate (Norepinephrine/D5w 4 Mg/250 Ml) Confirm Administered Dose 4 mg IV .STK-MED ONE Stop: 06/09/23 03:01 Last Admin: 06/09/23 05:02 Dose: 0.25 mg Documented By: PEDRO Ondansetron HCl (Ondansetron Inj 2 Mg/Ml 2 Ml Vial) Confirm Administered Dose 4 mg .ROUTE .STK-MED ONE Stop: 06/09/23 02:35 Last Admin: 06/09/23 05:09 Dose: Not Given Documented By: PEDRO Propofol (Propofol Iv Emulsion 10 Mg/Ml 100 Ml Vial (Pressure Washer Use Only)) Confirm Administered Dose 1,000 mg IV .STK-MED ONE Stop: 06/09/23 03:12 Last Admin: 06/09/23 05:03 Dose: 1,000 mg Documented By: PEDRO Succinylcholine Chloride (Succinylcholine Chloride 20 Mg/Ml 10 Ml Vial) 150 mg IV NOW STA Stop: 06/09/23 02:50 Last Admin: 06/09/23 02:49 Dose: 150 mg Documented By: EMB Imaging Data Radiologist's Impression: Chest CTA 06/09/23 02:28 CT angio chest dissec wo/w con CLINICAL HISTORY: CP TECHNIQUE: Multidetector row helical CT of the chest was performed before and after injection of IV contrast. Coronal, sagittal, and MIP reformations were obtained. Automated dose lowering techniques and/or adjustment according to patient size were utilized for this exam. Comparison: None available at the time of this dictation. FINDINGS: Lungs and pleura: Atelectasis versus scarring is seen in the dependent portions of the lungs. There is a 3 mm pleural-based nodule in the right middle lobe (series 4 image 134). Heart and pericardium: Cardiomegaly is seen with biatrial enlargement. Vessels: Severe atherosclerotic changes in the aorta and coronary arteries. No pulmonary embolus is seen. Although exam is not optimally timed, no evidence of aortic dissection or other acute aortic injury. Mediastinum and amanda: Subcentimeter lymph nodes are seen. Chest wall and lower neck: Enlarged heterogeneous thyroid is seen. Abdomen: For findings below the diaphragm, please refer to CT of the abdomen dated the same. Bones: Degenerative changes in the thoracic spine. IMPRESSION: 1. No acute abnormality and in particular no evidence of acute aortic injury. 2. Tiny pulmonary nodule as above. 3. Enlarged heterogeneous thyroid. If not previously evaluated a nonemergent thyroid ultrasound can be performed. ACT 112: Positive. There are findings on this exam that require communication between the performing entity and the patient following Patient Test Result Information Act ([place] Act 112) guidelines. Electronically signed by: Shun Brewer M.D. 06/09/2023 3:21 AM Chest X-Ray 06/09/23 02:28 XR chest 1V portable CLINICAL HISTORY: Chest pain, nonspecific TECHNIQUE: Single frontal radiograph of the chest was obtained. Comparison: Comparison is made to chest radiograph 12/30/2014 FINDINGS: In the initial image, the endotracheal tube is in the right mainstem pulmonary bronchus. A subsequent image, the endotracheal tube is essentially at the frantz. Cardiomegaly is noted. Prominence and cephalization of the vasculature is seen. No evidence of pleural effusion or pneumothorax. IMPRESSION: 1. In the final image, the endotracheal tube is at the frantz. It can be withdrawn approximately 3 cm for improved positioning. 2. Cardiomegaly with mild pulmonary edema. ACT 112: Negative or not required by law. Electronically signed by: Shun Brewer M.D. 06/09/2023 7:56 AM Abdomen/Pelvis CTA 06/09/23 02:36 CT angio abdomen pelvis w con CLINICAL HISTORY: cp TECHNIQUE: Multidetector row helical CT of the abdomen and pelvis was performed, following intravenous administration of iodinated contrast. No oral contrast was administered. Automated dose lowering techniques and/or adjustment according to patient size were utilized for this exam. Coronal and sagittal reformations were obtained. MIP and 3D volume rendered reconstructions were obtained. CT DOSE: 2754.17 mGy.cm Comparison: Comparison is made to CT abdomen pelvis 10/05/2009 FINDINGS: Lower chest: For findings above the diaphragm, please see CT chest performed same day. Liver: Unremarkable. No focal lesions are seen. Gallbladder and biliary tree: Patient is status post cholecystectomy. No intra- or extrahepatic biliary ductal dilation. Pancreas: Unremarkable, no focal lesions. Spleen: Unremarkable. Adrenals: Unremarkable. Kidneys and ureters: Nonobstructive nephrolithiasis is seen. Likely renal cysts are seen. Bladder: Unremarkable. Reproductive organs: Unremarkable. Bowel: The appendix is normal. Lymph nodes Retroperitoneal: Subcentimeter lymph nodes are noted. Pelvic: Unremarkable. Mesenteric: Unremarkable. Peritoneum: Normal. Abdominal wall: Unremarkable. Bones: Degenerative changes in the visualized spine. CT angiogram: The abdominal aortic contours appear intact without evidence of aneurysmal dilatation and/or dissection. There is evidence of scattered atherosclerotic calcifications of the abdominal aorta and its major branches. The origins of the celiac axis, superior mesenteric, inferior mesenteric and bilateral renal arteries are patent. IMPRESSION: No acute abnormalities. ACT 112: Negative or not required by law. Electronically signed by: Shun Brewer M.D. 06/09/2023 3:30 AM Discharge Plan Visit Data Chief Complaint: Heart Alert ED Provider: Arin Martel Discharge Problem: ST elevation (STEMI) myocardial infarction Patient Disposition: Transfer Acute Care Hospital Discharge Instructions Interventions: ED Discharge Assessment Last Done: 06/09/23 03:05 Discharge Problem: ST elevation (STEMI) myocardial infarction Qualifiers: Involved coronary artery: LAD coronary artery Qualified Code(s): I21.02 - ST elevation (STEMI) myocardial infarction involving left anterior descending coronary artery
[2023-06-09 07:15] LABS: iSTAT Arterial Blood Gas HCO3 20 meg/L (19-24); iSTAT Arterial Blood Gas pCO2 47 mmHg (35-46); iSTAT Arterial Blood Gas pH 7.24 (7.35-7.45); iSTAT Arterial Blood Gas pO2 350 mmHg (80-95); iSTAT Carbon Dioxide 21 mmol/L (24-31); iSTAT Hematocrit 51 % (37-47); iSTAT Hemoglobin 17.3 g/dl (12.0-16.0); iSTAT Potassium 3.8 mmol/L (3.3-5.0); iSTAT Sodium 138 mmol/L (135-144)
[2023-06-09 07:15] LABS: iSTAT Arterial Blood Gas HCO3 25 meg/L (19-24); iSTAT Arterial Blood Gas pCO2 58 mmHg (35-46); iSTAT Arterial Blood Gas pH 7.25 (7.35-7.45); iSTAT Arterial Blood Gas pO2 35 mmHg (80-95); iSTAT Carbon Dioxide 27 mmol/L (24-31); iSTAT Hematocrit 32 % (37-47); iSTAT Hemoglobin 10.9 g/dl (12.0-16.0); iSTAT Sodium 141 mmol/L (135-144)
--- NOTE | 2023-06-09 07:58 | XRay Report ---
XR chest 1V portable CLINICAL HISTORY: Chest pain, nonspecific TECHNIQUE: Single frontal radiograph of the chest was obtained. Comparison: Comparison is made to chest radiograph 12/30/2014 FINDINGS: In the initial image, the endotracheal tube is in the right mainstem pulmonary bronchus. A subsequent image, the endotracheal tube is essentially at the frantz. Cardiomegaly is noted. Prominence and cep halization of the vasculature is seen. No evidence of pleural effusion or pneumothorax. IMPRESSION: 1. In the final image, the endotracheal tube is at the frantz. It can be withdrawn approximately 3 c m for improved positioning. 2. Cardiomegaly with mild pulmonary edema. ACT 112: Negative or not required by law. Electronically signed by: Shun Brewer M.D. 06/09/2023 7:56 AM
[2023-06-09 09:19] LABS: iSTAT Arterial Blood Gas HCO3 23 meg/L (19-24); iSTAT Arterial Blood Gas pCO2 48 mmHg (35-46); iSTAT Arterial Blood Gas pH 7.28 (7.35-7.45); iSTAT Arterial Blood Gas pO2 68 mmHg (80-95); iSTAT Carbon Dioxide 24 mmol/L (24-31); iSTAT Hematocrit 31 % (37-47); iSTAT Hemoglobin 10.5 g/dl (12.0-16.0); iSTAT Potassium 2.9 mmol/L (3.3-5.0); iSTAT Sodium 143 mmol/L (135-144)
--- NOTE | 2023-06-10 06:10 | Electrocardiogram Report ---
Test Reason : Blood Pressure : / mmHG Vent. Rate : 078 BPM Atrial Rate : 078 BPM P-R Int : 180 ms QRS Dur : 104 ms QT Int : 408 ms P-R-T Axes : 069 079 095 degrees QTc Int : 465 ms Age and gender specific ECG analysis Sinus rhythm with occasional Premature ventricular complexes Acute anterior infarction ACUTE TN / STEMI Abnormal ECG When compared with ECG of 30-DEC-2014 11:59, ST elevation now present in Anterior leads Premature ventricular complexes are now Present Confirmed by Pop Moore ([id number]) on 06/10/2023 6:10:06 AM Referred By: REFERRED SELF Confirmed By:Pop Moore
--- OUTSIDE RECORDS SUMMARY | 2023-06-11 01:37 | External Medical Summary | Summary of Care ---
Author Name Unknown Organization [facility] Address [address] [place] [address] Phone [phone] Care Team Providers Care Vice President Of Consulting Services Name Role Phone Zahra Arguelles PA-C Primary Care Provider [phone] Encounter Details Date Type Department Care Team (Late st Contact Info) Description 06/09/2023 Result Scan Unspecified Department <No scans attached> Allergies Active Allergy Reactions Criticality Noted Date Comments Methadone 09/07/2013 Nausea, GI impact, weight gain, fatigue, somnolence documented as of this encounter (statuses as of 06/10/2023) Medications Medication Sig Dispensed Refills Start Date End Date Status ASPIRIN 81 MG PO TABS one by mouth daily in the morning 0 Active ALBUTEROL SULFATE HFA 108 (90 BASE) MCG/ACT IN AERS Use 2 puffs four times a day,as needed 1 Inhaler 5 01/17/2014 Active Jefferson-3 Fatty Acids (FISH OIL) 1200 MG CPDR Take 1,200 mg by mouth 2 times a day. 0 Active Coenzyme Q10 30 MG CHEW Take 2 Caps by mouth once. 1 Tab 0 09/19/2016 Active Cholecalciferol (VITAMIN D3) 1000 units CHEW Take by mouth. 0 Active Cyanocobalamin (B-12) 1000 MCG Capsule Take 1 capsule PO daily 0 Active tiZANidine HCl 4 MG Oral Tablet (Zanaflex) Take 2 Tabs by mouth every 6 hours as needed for Muscle spasms. 240 Tab 5 07/17/2020 Active Venlafaxine HCl ER 75 MG Oral Capsule Extended Release 24 Hour (Effexor XR) Take 1 Cap by mouth daily. 90 Cap 1 07/17/2020 Active hydrOXYzine HCl 25 MG Oral TabletIndications:Ch ronic depressive disorder,Generalized anxiety disorder Take 1 Tab by mouth 3 times a day as needed for Anxiety (mood change). 90 Tab 1 07/17/2020 Active Silver sulfADIAZINE 1 % External Cream (Silvadene)Indicatio ns:Open wound of face without complication, initial encounter Apply topically to affected area daily. Apply to burn 85 g 1 07/14/2020 Active B Complex Vitamins Oral Capsule Take 1 Cap by mouth daily. 1 Cap 0 09/06/2020 Active [facility] Probiotic Oral Tablet Chewable Take 1 Tab by mouth once for 1 dose. 1 Tab 0 09/06/2020 Active Caffeine 200 MG Oral Tablet Take 2 Tabs by mouth daily. 1 Tab 0 09/06/2020 Active Urea 10 % External CreamIndications:Abhijeet austin Apply topically to affected area daily. Apply to R foot 4th and 5th toes 57 g 5 09/21/2020 Active Ezetimibe 10 MG Oral Tablet (Zetia) Take 1 Tab by mouth daily. 34 Tab 11 11/14/2020 Active Rosuvastatin Calcium 40 MG Oral Tablet (Crestor) TAKE 1 TABLET BY MOUTH EVERY DAY 90 Tablet 1 03/29/2021 Active Furosemide 20 MG Oral Tablet (Lasix)Indications:E juanito TAKE 1 TABLET TWICE A DAY NEEDED FOR EDEMA 180 Tablet 1 03/29/2021 Active Metoprolol Succinate ER 25 MG Oral Tablet Extended Release 24 Hour (toPROL XL)Indications:Coron delia artery disease involving benton coronary artery of benton heart without angina pectoris TAKE 1 TABLET BY MOUTH EVERY DAY 90 Tablet 1 04/16/2021 Active Pregabalin 100 MG Oral Capsule (Lyrica) TAKE 1 CAPSULE BY MOUTH TWICE A DAY 60 Capsule 0 08/21/2021 Active documented as of this encounter (statuses as of 06/10/2023) Active Problems Problem Noted Date Diagnosed Date Acute ST elevation myocardial infarction (STEMI) 06/09/2023 Cardiogenic shock 06/09/2023 Cardiac arrest 06/09/2023 Familial hypercholesteremia 12/19/2020 Violation of narcotic use agreement 09/08/2020 Overview: Cancelled medication use agreement as of 09/08/20 MEDICATION USE AGREEMENT 05/24/2020 Overview: Updated 03/23/2015 Updated 05/02/16 Robert Peña MD [facility] Major depressive disorder, recurrent, unspecifie d 05/22/2020 Coronary artery disease invo lving benton coronary artery of benton heart without angina pectoris 03/28/2016 Bilateral low back pain with left-sided sciatica 05/26/2015 Allergic rhinitis 05/26/2015 CAD (coronary artery disease) 11/03/2013 Ischemic heart disease due to coronary artery ob struction 06/09/2013 Generalized anxiety disorder 02/11/2013 Chronic depressive disorder 02/11/2013 Low back pain 11/22/2011 CAD S/P percutaneous coronary angioplasty [address] elevation myocardial infarction (STEMI) 08/07/2011 Overview: ICD-10 update of inactive term Vitamin D deficiency 06/27/2011 Acute gastric ulcer without mention of hemorrhage, perforation, or obstruction 10/06/2009 High triglycerides 07/19/2009 DYSLIPIDEMIA, GOAL LDL BELOW 100 02/13/2009 Overview: Per Lipid Taxonomy. DISC DIS L3-L4 and L4-L5 12/24/2007 Dystonia 09/10/2006 S/P SURGERY FOR LUMBAR DISC DISPLACEMENT 006 NEUROPATHY IN OTHER DIS 04/04/2005 Family history of ischemic heart disease 005 Tobacco use disorder documented as of this encounter (statuses as of 06/10/2023) Resolved Problems Problem Noted Date Diagnosed Date Resolved Date High triglycerides 07/20/2009 1 Type 2 diabetes mellitus wit h hemoglobin A1c goal of less than 7.0% 12/19/2008 03/19/2011 Overview: ICD-10 update of inactive term Dyslipidemia, goal to be determined 09/10/2006 02/13/2009 Overview: Per Lipid Taxonomy. Elevated blood pressure, situational 09/10/2006 02/04/2011 Pain in limb 07/10/2005 02/04/2011 ADVANCE DIRECTIVE INFORMATION 04/04/2005 01/31/2021 Overview: No advance directed- declined info Abnormal weight gain 04/04/2005 010 OVERWEIGHT 04/04/2005 01/12/2010 Displacement of lumbar inter vertebral disc without myelopathy 01/07/2005 02/04/2011 BACKACHE NOS 01/07/2005 02/04/2011 Spasm of muscle 01/07/2005 04/04/2005 RENAL CYST 01/07/2005 10/14/2008 Vertigo 03/05/2004 02/04/2011 Labyrinthitis, unspecified 03/05/2004 0 04/04/2005 Volume depletion 03/05/2004 04/04/2005 Tobacco use disorder 03/05/2004 009 Overview: Resolved per Duplicate Protocol #2. ACUTE PHARYNGITIS 04/23/2002 04/04/2005 documented as of this encounter (statuses as of 06/10/2023) Immunizations Name Administration Dates Next Due Pneumococcal Polysaccharide PPV23 (Pneumovax) 11/17/2008,08/18/2008(Deferred: Patient Refused - Pt currently ill) Seasonal Influenza, PF, 6 M & above, IM , (FluLaval or Fluzone) 11/15/2019,03/17/2018,11/27/2016 11/27/2017 Seasonal Influenza, Quadriva lent, No Preserve, IM 11/29/2015,01/05/2015 01/06/2016 Seasonal Influenza, Split, I IV3, With Preserve, Inj 01/17/2014,11/18/2012,03/30/2012,10/08/2010,12/12/2009(Deferred: Patient Refused),11/30/2009,11/17/2008 TDAP (age 10 and older)(Boostrix) 03/17/2018 TDAP (age 11 and older)(Adacel) 10/26/2007 documented as of this encounter Social History Tobacco Use Types Packs/Day Years Used Date Smoking Tobacco: Every Day Cigarettes 0.5 35 Smokeless Tobacco: Never Alcohol Use Standard Drinks/Week Comments Yes 0 (1 standard drink = 0.6 oz pur e alcohol) 1-2 per year PHQ-2 Answer Date Recorded PHQ-2 Score 12 11/15/2019 Sex and Gender Information Value Date Recorded Sex Assigned at Not on file Gender Identity Not on file Sexual Orientation Straight 06/09/2023 7: 36 AM EDT Job Start Date Occupation Industry Not on file Not on file Not on file documented as of this encounter Plan of Treatment Health Maintenance Due Date Last Done Comments Hepatitis C Screening 1986 Hepatitis B (1 of 3 - 19+ 3-dose series) 11/11/1987 HPV/Co-Test 1998 Pneumococcal Vaccine: Pediatrics (0 to 5 Years) and At-Risk Patients (6 to 64 Years) (2 of 2 - PCV) 11/17/2009 11/17/2008 Colonoscopy 2013 Fecal Occult Blood Test 2013 Sigmoidoscopy 2013 Zoster Vaccines (1 of 2) 2018 Depression, Most Recent Score >= 10 (will fire each visit until score < 10) 11/16/2019 11/15/2019 Mammogram 06/30/2021 06/30/2020, 11/2019, 02/26/2018, Additional history exists COVID-19 Vaccine ( season) 2022 Cologuard 06/16/2023 06/15/2020 Colorectal Cancer Screening 06/16/2023 Cervical Cancer Screening 06/30/2023 Pap Smear 06/30/2023 06/29/2020, 08/03, 10/12/2012, Additional history exists Influenza Vaccine (FLU shot) (Season Ended) 2023 11/15/2019, 03/17/2018, 11/27/2016, Additional history exists Diabetes Screening 06/08/2026 06/09/2023, 0 06/09/2023, 06/09/2023, Additional history exists DTaP,Tdap,and Td Vaccines (3 - Td or Tdap) 03/17/2028 03/17/2018, 10/26/2007 GARDASIL-HPV IMMUNIZATION SERIES Aged Out No longer eligible based on patient's age to complete this topic MENINGOCOCCAL (MENACTRA/MENVEO) Aged Out No longer eligible based on patient's age to complete this topic documented as of this encounter Medical Devices Implanted Type Area Water Well Driller Device Identifier Shelf Expiration Date Model / Serial / Lot Lens Intraoc 15.5 - [id number] - [id number] Implanted:Qty: 1 on 11/05/2016 by Ty Soliman MD at [facility] Left: Eye BAUSCH & LOMB 01/30/2021 [id number] / [id number] / [id number] Lens Intraoc 12.5 - [id number] - [id number] Implanted:Qty: 1 on 11/19/2016 by Ty Soliman MD at [facility] Right: Eye BAUSCH & LOMB 09/30/2020 [id number] / [id number] / [id number] Coil Emboli Tornado 3x2 - [id number] Implanted:Qty: 1 on 06/09/2023 at [facility] [employer] [id number] 02/08/2028 [id number] / [id number] Coil Fibered 2 10mm [id number] - [id number] Implanted:Qty: 1 on 06/09/2023 at [facility] [employer] : NEURO INTR [id number] 2025 [id number] / [id number] documented as of this encounter Procedures Procedure Name Priority Date/Time Associated Diagnosis Comments CARDIAC CATH SCANNED RESULT 06/09/2023 documented in this encounter Results * CARDIAC CATH SCANNED RESULT (06/09/2023) 06/09/2023 No Physician Data Unknown CARD CATH documented in this encounter Advance Directives Latest Code Status on File Code Status Date Activated Date Inactivated Comments No Code 06/09/2023 6:43 PM 06/10/2023 4:57 AM This or michael reflects the patients wishes and were consensually agreed upon. Question Answer Comments Discussion of Advance Directives occurred with: Family Code Status History Code Status Date Activated Date Inactivated Comments Full Code 06/09/2023 7:23 AM 06/09/2023 6:43 PM This or michael reflects the patients wishes and were consensually agreed upon. Question Answer Comments Discussion of Advance Directives occurred with: Patient Full Code 11/19/2016 6:32 AM 11/19/2016 12:39 PM This order reflects the patients wishes and were consensually agreed upon. Full Code 11/05/2016 10:57 AM 11/05/2016 5:35 PM This o rder reflects the patients wishes and were consensually agreed upon. Care Teams Vice President Of Consulting Services Relationship Specialty Start Date End Date Zahra Arguelles PA-C [address] [place] [id number] PCP - General Physician Range Ecologist 08/21/21 documented as of this encounter
--- OUTSIDE RECORDS SUMMARY | 2023-06-11 01:37 | External Medical Summary ---
Author Name Unknown Address Unknown Organization [id number]:LABORATORY [facility] [place] - [address] [place] [address] Laboratory Report Ordering Provider Test Date Status BJ WHALEY 06/09/2023 14:35:06 Final Observation Date Value Abnormality Reference (Units ) Status Oxygen saturation in Venous blood 06/09/2023 14:35:06 57.9 40.0-85.0 (%) Final Performing Location [facility]ATORY [facility] - [address] [place] [address]
--- OUTSIDE RECORDS SUMMARY | 2023-06-11 01:37 | External Medical Summary ---
Author Name Unknown Address Unknown Organization [id number]:LABORATORY [facility] [place] - [address] [facility] [place] [address] Laboratory Report Ordering Provider Test Date Status JUDDMAURIKALYAN 06/09/2023 18:06:03 Final Please submit paper requisit ion from [employer] with sample and fill in the appropriate information:
null Observation Date Value Abnormality Reference (Units) Status Body temperature 06/09/2023 18:06:03 37.0 (C) Final pH of Arterial blood 06/09/2023 18:06:03 7.086 Below lower panic limits 7.350-7.450 (units) Final Carbon dioxide [Partial pressure] in Arterial blood 06/09/2023 18:06:03 21.0 Below low normal 35.0-45.0 (mmHg) Final Oxygen [Partial pressure] in Arterial blood 06/09/2023 18:06:03 218.0 Above high normal 75.0-100.0 (mmHg) Final Base excess, Arterial 06/09/2023 18:06:03 -22.5 Below low normal -2.0-2.0 (mmol/L) Final Hemoglobin [Mass/volume] in Blood by Oximetry 06/09/2023 18:06:03 9.8 Below low normal 12.0-15.3 (g/dL) Final Oxyhemoglobin, Arterial (FO2HB) 06/09/2023 18:06:03 97.3 94.0-99.0 (% total Hgb) Final Carboxyhemoglobin 06/09/2023 18:06:03 0.3 <=1.5 (% total Hgb) Final Smokers: 0-9.0 % Methemoglobin 06/09/2023 18:06:03 1.3 <=1.5 (% total Hgb) Final Deoxyhemoglobin/Hemog lobin.total in Arterial blood 06/09/2023 18:06:03 1.1 0.0-5.0 (% total Hgb) Final Oxygen content in Arterial blood 06/09/2023 18:06:03 13.9 Below low normal 15.0-24.0 (%vol) Final Oxygen/Total gas setting [Volume Fraction] Ventilator 06/09/2023 18:06:03 Not Provided (%) Final O2 FLOW, ARTERIAL - [facility] 06/09/2023 18:06:03 Not Provided (L/min) Final Bicarbonate, Venous, POC (i-STAT) 06/09/2023 18:06:03 6.0 Below low normal 23.0-31.0 (mmol/L) Final Performing Location LABORATORY [facility] [place] - [address] [facility] [address]
--- OUTSIDE RECORDS SUMMARY | 2023-06-11 01:37 | External Medical Summary ---
Author Name Unknown Address Unknown Organization [id number]:LABORATORY [facility] [place] - [address] [place] [address] Laboratory Report Ordering Provider Test Date Status BJ WHALEY 06/09/2023 20:04:06 Final Observation Date Value Abnormality Reference (Units ) Status Phosphate 06/09/2023 20:04:06 6.3 Above high normal 2. 5-4.8 (mg/dL) Final Performing Location [facility] - [address] [place] [address]
--- OUTSIDE RECORDS SUMMARY | 2023-06-11 01:37 | External Medical Summary ---
Author Name Unknown Address Unknown Organization [id number]:[place] [facility] [place] [address] [place] [id number] Laboratory Report Ordering Provider Test Date Status MERRILL CRONIN 06/09/2023 20:04:06 Final Anticoagulation may affect t esting. Refer to [facility] Test Catalog for a list of effects. Observation Date Value Abnormality Reference (Units ) Status aPTT panel - Platelet poor plasma 06/09/2023 20:04:06 70 Above high normal 21-38 (seconds) Final Performing Location [facility] [place] [address] [place] [id number]
--- OUTSIDE RECORDS SUMMARY | 2023-06-11 01:37 | External Medical Summary ---
Author Name Unknown Address Unknown Organization [id number]:[place] [facility] [place] [facility] [address] [facility] [address] Laboratory Report Ordering Provider Test Date Status BJ WHALEY 06/09/2023 14:34:12 Final Observation Date Value Abnormality Reference (Units ) Status WBC, Total 06/09/2023 14:34:12 17.16 Above high normal 4.00-10.80 (K/uL) Final RBC 06/09/2023 14:34:12 2.80 3.85-5.15 (M/uL) Final Hemoglobin 06/09/2023 14:34:12 8.2 Below low normal 12.0-15.3 (g/dL) Final HCT 06/09/2023 14:34:12 26.0 Below low normal 36.0-45.2 (%) Final MCV 06/09/2023 14:34:12 92.9 81.5-97.5 (fL) Final MCH 06/09/2023 14:34:12 29.3 27.0-34.0 (pg) Final MCHC 06/09/2023 14:34:12 31.5 32.0-36.0 (g/dL) Final RDW 06/09/2023 14:34:12 14.0 11.5-15.5 (%) Final Platelets 06/09/2023 14:34:12 130 Below low normal 140-400 (K/uL) Final MPV 06/09/2023 14:34:12 10.8 6.6-11.1 (fL) Final Nucleated erythrocytes/100 leukocytes [Ratio] in Blood by Automated count 06/09/2023 14:34:12 0 <=0 (/100 WBCs) Final Performing Location [facility]ORY [facility] [place] [address] [place] [address]
--- OUTSIDE RECORDS SUMMARY | 2023-06-11 01:37 | External Medical Summary ---
Author Name Unknown Address Unknown Organization [id number]:LABORATORY [facility] [place] - [facility] [address] [place] [address] Laboratory Report Ordering Provider Test Date Status BJ WHALEY 06/09/2023 20:04:06 Final Observation Date Value Abnormality Reference (Units ) Status WBC, Total 06/09/2023 20:04:06 12.36 Above high normal 4.00-10.80 (K/uL) Final RBC 06/09/2023 20:04:06 2.00 3.85-5.15 (M/uL) Final Hemoglobin 06/09/2023 20:04:06 6.0 Below lower panic limits 12.0-15.3 (g/dL) Final HCT 06/09/2023 20:04:06 18.6 Below low normal 36.0-45.2 (%) Final MCV 06/09/2023 20:04:06 93.0 81.5-97.5 (fL) Final MCH 06/09/2023 20:04:06 30.0 27.0-34.0 (pg) Final MCHC 06/09/2023 20:04:06 32.3 32.0-36.0 (g/dL) Final RDW 06/09/2023 20:04:06 14.5 11.5-15.5 (%) Final Platelets 06/09/2023 20:04:06 94 Below low normal 140-400 (K/uL) Final MPV 06/09/2023 20:04:06 11.6 6.6-11.1 (fL) Final Nucleated erythrocytes/100 leukocytes [Ratio] in Blood by Automated count 06/09/2023 20:04:06 0 <=0 (/100 WBCs) Final Performing Location LABORATORY [facility] [place] - [address] [place] [address]
--- OUTSIDE RECORDS SUMMARY | 2023-06-11 01:37 | External Medical Summary ---
Author Name Unknown Address Unknown Organization [id number][place] [facility] [place] [address] [place] [address] Laboratory Report Ordering Provider Test Date Status MERRILL CRONIN 06/09/2023 20:04:06 Final Warfarin Therapy
INR: 2 .0-3.0 conventional anticoagulation
INR: 2.5- 3.5 high intensity anticoagulation Observation Date Value Abnormality Reference (Units ) Status PT 06/09/2023 20:04:06 32.2 Above high normal 11 .6-15.2 (seconds) Final INR 06/09/2023 20:04:06 3.1 Above high normal 0. 8-1.2 Final Performing Location [place] [facility] [place] [address] [place] [address]
--- OUTSIDE RECORDS SUMMARY | 2023-06-11 01:37 | External Medical Summary ---
Author Name Unknown Address Unknown Organization [id number]:LABORATORY [facility] [place] - [address] [facility] [address] Laboratory Report Ordering Provider Test Date Status BJ WHALEY 06/09/2023 11:11:31 Final Observation Date Value Abnormality Reference (Units ) Status HbA1C 06/09/2023 11:11:31 6.1 Above high normal 4. 0-5.6 (%) Final The use of HbA1c to monitor glycemic status is based on normal hemoglobin and HbA composition. This test should not be used in patients with abnormal hemoglobin that affects the half life of the red blood cell or the in vivo glycation rates. Glucose, estimated average 06/09/2023 11:11:31 128 Above high normal <126 (mg/dL) Niles sánchez Performing Location LABORATORY [facility] [place] - [address] [facility] [address]
--- OUTSIDE RECORDS SUMMARY | 2023-06-11 01:37 | External Medical Summary ---
Author Name Unknown Address Unknown Organization [id number]:[facility] [place] [address] [place] [address] Laboratory Report Ordering Provider Test Date Status BJ WHALEY 06/09/2023 14:34:12 Final Observation Date Value Abnormality Reference (Units ) Status Phosphate 06/09/2023 14:34:12 5.5 Above high normal 2. 5-4.8 (mg/dL) Final Performing Location LABORATORY [facility] - [address] [place] [address]
--- OUTSIDE RECORDS SUMMARY | 2023-06-11 01:37 | External Medical Summary ---
Author Name Unknown Address Unknown Organization [id number]:LABORATORY [facility] [place] - [address] [facility] [address] Laboratory Report Ordering Provider Test Date Status MERRILL CRONIN 06/09/2023 20:07:44 Final Observation Date Value Abnormality Reference (Units) Status Color of Urine by Auto 06/09/2023 20:07:44 Light Yellow Colorless, Light Yellow, Yellow, Dark Yellow Final Clarity, Urine 06/09/2023 20:07:44 Clear Clear Final Glucose [Mass/volume] in Urine by Automated test strip 06/09/2023 20:07:44 250 Abnormal Negative (mg/dL) Final Bilirubin.total [Presence] in Urine by Automated test strip 06/09/2023 20:07:44 Negative Negative Final Ketones [Mass/volume] in Urine by Automated test strip 06/09/2023 20:07:44 Negative Negative (mg/dL) Final Specific gravity, Urine 06/09/2023 20:07:44 >1.050 Above high normal 1.003-1.030 Final Hemoglobin [Presence] in Urine by Automated test strip 06/09/2023 20:07:44 Large Abnormal Negative Final pH, Urine 06/09/2023 20:07:44 6.0 5.0-7.5 (Units) Final Protein [Mass/volume] in Urine by Automated test strip 06/09/2023 20:07:44 30 Abnormal Negative (mg/dL) Final Urobilinogen [Mass/volume] in Urine by Automated test strip 06/09/2023 20:07:44 Normal Normal (mg/dL) Final Nitrite [Presence] in Urine by Automated test strip 06/09/2023 20:07:44 Negative Negative Final Leukocyte esterase [Presence] in Urine by Automated test strip 06/09/2023 20:07:44 Negative Negative Final RBC, Urine 06/09/2023 20:07:44 3-5 Abnormal 0-2 (/HPF) Final WBC, Urine 06/09/2023 20:07:44 3-5 Abnormal 0-2 (/HPF) Final Bacteria [#/area] in Urine sediment by Microscopy high power field 06/09/2023 20:07:44 101-150 Abnormal 0-25 (/HPF) Final Granular casts [#/area] in Urine sediment by Microscopy low power field 06/09/2023 20:07:44 5-9 Abnormal None (/LPF) Final Hyaline casts, Urine 06/09/2023 20:07:44 1-4 Abnormal None (/LPF) Final CULTURE, URINE - [facility] 06/09/2023 20:07:44 Final Quantitative urine culture t o be performed Performing Location LABORATORY [facility] [place] - [address] [facility] [address]
--- OUTSIDE RECORDS SUMMARY | 2023-06-11 01:37 | External Medical Summary ---
Author Name Unknown Address Unknown Organization [id number]:LABORATORY [facility] [place] - [address] [place] [address] Laboratory Report Ordering Provider Test Date Status RAY GARCÍA 06/09/2023 11:11:31 Final Observation Date Value Abnormality Reference (Units ) Status Oxygen saturation in Venous blood 06/09/2023 11:11:31 55.9 40.0-85.0 (%) Final Performing Location LABORATORY [facility] - [address] [place] [address]
--- OUTSIDE RECORDS SUMMARY | 2023-06-11 01:37 | External Medical Summary ---
Author Name Unknown Address Unknown Organization K01:[place]ORY [facility] [place] [address] [facility] [address] Laboratory Report Ordering Provider Test Date Status MERRILL CRONIN 06/09/2023 20:04:06 Final Observation Date Value Abnormality Reference (Units ) Status BUN 06/09/2023 20:04:06 20 6-20 (mg/dL) Final Creatinine 06/09/2023 20:04:06 1.7 Above high normal 0.5-1.0 (mg/dL) Final Glomerular filtration rate/1.73 sq M.predicted [Volume Rate/Area] in Serum, Plasma or Blood by Creatinine-based formula (CKD-EPI) 06/09/2023 20:04:06 36 Below low normal >=60 (mL/min) Final eGFR is calculated based on the CKD-EPI 2020 equation Sodium 06/09/2023 20:04:06 135 135-146 (m mol/L) Final Potassium 06/09/2023 20:04:06 3.6 3.5-5.1 (m mol/L) Final Cl 06/09/2023 20:04:06 96 Below low normal 98- 107 (mmol/L) Final CO2 06/09/2023 20:04:06 5 Below low normal 22- 32 (mmol/L) Final Anion gap 06/09/2023 20:04:06 34 Above high normal 7- 15 (mmol/L) Final Glucose 06/09/2023 20:04:06 609 Above up per panic limits 70-120 (mg/dL) Final Albumin 06/09/2023 20:04:06 1.4 Below low normal 3.8 -5.0 (g/dL) Final AST (Aspartate aminotransferase) 06/09/2023 20:04:06 1283 Above high normal 10-35 (U/L) Final Alk Phos 06/09/2023 20:04:06 52 35-130 (U/ L) Final Bilirubin, Total 06/09/2023 20:04:06 0.9 <=1 .2 (mg/dL) Final Calcium 06/09/2023 20:04:06 6.6 Below low normal 8.4 -10.2 (mg/dL) Final Protein 06/09/2023 20:04:06 2.2 Below low normal 6.0 -8.3 (g/dL) Final ALT (Alanine aminotransferase) 06/09/2023 20:04:06 558 Above high normal 10-35 (U/L) Final Performing Location LAB[facility]ATORY [facility] [place] [address] [facility] [address]
--- OUTSIDE RECORDS SUMMARY | 2023-06-11 01:37 | External Medical Summary ---
Author Name Unknown Address Unknown Organization : Laboratory Report Ordering Provider Test Date Status VIC PADGETT 06/09/2023 19:31:16 Final Observation Date Value Abnormality Reference (Units ) Status Glucose Point of Care 06/09/2023 19:31:16 >500 Above upper panic limits 70-120 (mg/dL) Final Performing Location
--- OUTSIDE RECORDS SUMMARY | 2023-06-11 01:37 | External Medical Summary ---
Author Name Unknown Address Unknown Organization K01:LABORATORY [facility] - [address] [place] [address] Laboratory Report Ordering Provider Test Date Status BJ WHALEY 06/09/2023 20:04:06 Final Observation Date Value Abnormality Reference (Units ) Status Magnesium 06/09/2023 20:04:06 2.2 1.5-2.6 (m g/dL) Final Performing Location [facility] - [address] [place] [address]
--- OUTSIDE RECORDS SUMMARY | 2023-06-11 01:37 | External Medical Summary ---
Author Name Unknown Address Unknown Organization [id number]:[place] [place] [address] [place] [address] Laboratory Report Ordering Provider Test Date Status BJ WHALEY 06/09/2023 20:04:06 Final Observation Date Value Abnormality Reference (Units ) Status Lactic Acid 06/09/2023 20:04:06 22.6 Above upper panic limits 0.4-2.0 (mmol/L) Final Performing Location [facility] - [address] [place] [address]
--- OUTSIDE RECORDS SUMMARY | 2023-06-11 01:37 | External Medical Summary ---
Author Name Unknown Address Unknown Organization [id number]:LABORATORY [facility] [place] - [address] [place] [address] Laboratory Report Ordering Provider Test Date Status RAY GARCÍA 06/09/2023 11:11:31 Final Observation Date Value Abnormality Reference (Units ) Status Lactic Acid 06/09/2023 11:11:31 15.1 Above upper panic limits 0.4-2.0 (mmol/L) Final Performing Location LABORATORY [facility] - [address] [place] [address]
--- OUTSIDE RECORDS SUMMARY | 2023-06-11 01:37 | External Medical Summary ---
Author Name Unknown Address Unknown Organization : Laboratory Report Ordering Provider Test Date Status VIC PADGETT 06/09/2023 16:47:06 Final Observation Date Value Abnormality Reference (Units) Status Blood draw [PhenX] 06/09/2023 16:47:06 Arterial Draw Final pH, POC (i-STAT) 06/09/2023 16:47:06 7.071 Below lower panic limits 7.350-7.450 Final PCO2 POC (i-STAT) 06/09/2023 16:47:06 24.8 Below low normal 35.0-45.0 (mm Hg) Final PO2 POC (i-STAT) 06/09/2023 16:47:06 411 Above high normal 75-100 (mm Hg) Final Base excess standard in Arterial blood by calculation 06/09/2023 16:47:06 -21 Below low normal -2-2 (mmol/L) Final Bicarbonate, Venous, POC (i-STAT) 06/09/2023 16:47:06 7.2 Below low normal 23.0-31.0 (mmol/L) Final O2 Sat, calculated POC (i-STAT) 06/09/2023 16:47:06 100.0 Above high normal 94.0-98.0 (%) Final Glucose, whole blood 06/09/2023 16:47:06 490 Above high normal 70-120 (mg/dL) Final Potassium, Whole Blood 06/09/2023 16:47:06 2.7 Below low normal 3.5-5.1 (mmol/L) Final Sodium, Whole Blood 06/09/2023 16:47:06 137 135-146 (mmol/L) Final Calcium, Ionized, Whole Blood 06/09/2023 16:47:06 1.05 Below low normal 1.13-1.32 (mmol/L) Final Hemoglobin POC (i-STAT) 06/09/2023 16:47:06 8.2 Below low normal 12.0-15.3 (g/dL) Final HCT 06/09/2023 16:47:06 24 Below low normal 36-45 (%) Final Oxygen/Total gas setting [Volume Fraction] Ventilator 06/09/2023 16:47:06 60 (%) Final Performing Location
--- OUTSIDE RECORDS SUMMARY | 2023-06-11 01:37 | External Medical Summary ---
Author Name Unknown Address Unknown Organization K01:LABORATORY [facility] - [address] [place] [address] Laboratory Report Ordering Provider Test Date Status BJ WHALEY 06/09/2023 14:34:12 Final Observation Date Value Abnormality Reference (Units ) Status Magnesium 06/09/2023 14:34:12 2.2 1.5-2.6 (m g/dL) Final Performing Location LAB[facility] - [address] [place] [address]
--- OUTSIDE RECORDS SUMMARY | 2023-06-11 01:37 | External Medical Summary ---
Author Name Unknown Address Unknown Organization [id number]:LABORATORY [facility] [place] - [address] [place] [address] Laboratory Report Ordering Provider Test Date Status BJ WHALEY 06/09/2023 14:34:12 Final Observation Date Value Abnormality Reference (Units ) Status Lactic Acid 06/09/2023 14:34:12 16.8 Above upper panic limits 0.4-2.0 (mmol/L) Final Performing Location LAB[facility] - [address] [place] [address]
--- OUTSIDE RECORDS SUMMARY | 2023-06-11 01:37 | External Medical Summary ---
Author Name Unknown Address Unknown Organization [id number]:LAB[facility]ATORY [facility] [place] - [address] [facility] [address] Laboratory Report Ordering Provider Test Date Status RAY GARCÍA 06/09/2023 11:11:12 Final Please submit paper requisit ion from unit printer with sample and fill in the appropriate information:
null Observation Date Value Abnormality Reference (Units) Status Body temperature 06/09/2023 11:11:12 37.0 (C) Final pH of Arterial blood 06/09/2023 11:11:12 7.267 Below low normal 7.350-7.450 (units) Final Carbon dioxide [Partial pressure] in Arterial blood 06/09/2023 11:11:12 24.0 Below low normal 35.0-45.0 (mmHg) Final Oxygen [Partial pressure] in Arterial blood 06/09/2023 11:11:12 308.0 Above high normal 75.0-100.0 (mmHg) Final Base excess, Arterial 06/09/2023 11:11:12 -15.0 Below low normal -2.0-2.0 (mmol/L) Final Hemoglobin [Mass/volume] in Blood by Oximetry 06/09/2023 11:11:12 5.9 Below lower panic limits 12.0-15.3 (g/dL) Final Oxyhemoglobin, Arterial (FO2HB) 06/09/2023 11:11:12 97.6 94.0-99.0 (% total Hgb) Final Carboxyhemoglobin 06/09/2023 11:11:12 0.5 <=1.5 (% total Hgb) Final Smokers: 0-9.0 % Methemoglobin 06/09/2023 11:11:12 1.3 <=1.5 (% total Hgb) Final Deoxyhemoglobin/Hemog lobin.total in Arterial blood 06/09/2023 11:11:12 0.6 0.0-5.0 (% total Hgb) Final Oxygen content in Arterial blood 06/09/2023 11:11:12 9.0 Below low normal 15.0-24.0 (%vol) Final Oxygen/Total gas setting [Volume Fraction] Ventilator 06/09/2023 11:11:12 Not Provided (%) Final O2 FLOW, [facility] - [facility] 06/09/2023 11:11:12 Not Provided (L/min) Final Bicarbonate, Venous, POC (i-STAT) 06/09/2023 11:11:12 10.6 Below low normal 23.0-31.0 (mmol/L) Final Performing Location LABORATORY [facility] [place] - [address] [facility] [address]
--- OUTSIDE RECORDS SUMMARY | 2023-06-11 01:37 | External Medical Summary ---
Author Name Unknown Address Unknown Organization K01:LABORATORY [facility] - [address] [facility] [address] Laboratory Report Ordering Provider Test Date Status MERRILL CRONIN 06/10/2023 00:49:00 Final PRE-DISCHARGE Observation Date Value Abnormality Reference (Units ) Status SARS Coronavirus 2 06/10/2023 00:49:00 Negative N egative Final 2018 Novel Coronavirus not d etected.

This express test was developed and its performance characteristics determined by [employer]. It has not been cleared or approved by the U.S. Food and Drug Administration (FDA). FDA does not require this test to go thru premarket FDA review. This test is used for clinical purposes. It should not be regarded as investigational or for research. This laboratory is certified under the Clinical Laboratory Improvement Amendments (CLIA) as qualified to perform high complexity clinical laboratory testing.

This test is a nucleic acid amplification test (NAAT), a reverse transcriptase polymerase chain reaction (RT-PCR) test, or a Centers for Disease Control-acceptable equivalent. The test is performed in a high complexity Clinical Laboratory Improvement Amendments-(CLIA) certified laboratory. The test is acceptable for SARS-CoV-2 diagnosis, surveillance, and travel within the [place] and to most countries. Please check with local testing authorities about requirements before travel.

The validation of bronchial specimens, tracheal aspirates, and sputum for this assay was developed and performance characteristics determined by [employer] [facility] [employer]. The validation of alternate specimen types has not been cleared or approved by the U.S. Food and Drug Administration (FDA). It has been determined that such clearance is not necessary. Performing Location LABORATORY [facility] - [address] [facility] [address]
--- OUTSIDE RECORDS SUMMARY | 2023-06-11 01:37 | External Medical Summary ---
Author Name Unknown Address Unknown Organization K01:LABORATORY [place] - [address] [facility] [address] Laboratory Report Ordering Provider Test Date Status BJ WHALEY 06/09/2023 14:35:32 Final Please submit paper requisit ion from [employer] with sample and fill in the appropriate information:
null Observation Date Value Abnormality Reference (Units) Status Body temperature 06/09/2023 14:35:32 37.0 (C) Final pH of Arterial blood 06/09/2023 14:35:32 7.089 Below lower panic limits 7.350-7.450 (units) Final Carbon dioxide [Partial pressure] in Arterial blood 06/09/2023 14:35:32 22.8 Below low normal 35.0-45.0 (mmHg) Final Oxygen [Partial pressure] in Arterial blood 06/09/2023 14:35:32 379.0 Above high normal 75.0-100.0 (mmHg) Final Base excess, Arterial 06/09/2023 14:35:32 -21.7 Below low normal -2.0-2.0 (mmol/L) Final Hemoglobin [Mass/volume] in Blood by Oximetry 06/09/2023 14:35:32 8.3 Below low normal 12.0-15.3 (g/dL) Final Oxyhemoglobin, Arterial (FO2HB) 06/09/2023 14:35:32 98.2 94.0-99.0 (% total Hgb) Final Carboxyhemoglobin 06/09/2023 14:35:32 0.4 <=1.5 (% total Hgb) Final Smokers: 0-9.0 % Methemoglobin 06/09/2023 14:35:32 1.0 <=1.5 (% total Hgb) Final Deoxyhemoglobin/Hemog lobin.total in Arterial blood 06/09/2023 14:35:32 0.4 0.0-5.0 (% total Hgb) Final Oxygen content in Arterial blood 06/09/2023 14:35:32 12.5 Below low normal 15.0-24.0 (%vol) Final Oxygen/Total gas setting [Volume Fraction] Ventilator 06/09/2023 14:35:32 Not Provided (%) Final O2 FLOW, [facility] - [facility] 06/09/2023 14:35:32 Not Provided (L/min) Final Bicarbonate, Venous, POC (i-STAT) 06/09/2023 14:35:32 6.6 Below low normal 23.0-31.0 (mmol/L) Final Performing Location LABORATORY [place] - [place] [address] [facility] [address]
--- OUTSIDE RECORDS SUMMARY | 2023-06-11 01:37 | External Medical Summary ---
Author Name Unknown Address Unknown Organization K01:[place] [place] [facility] [address] [place] [address] Laboratory Report Ordering Provider Test Date Status BJ WHALEY 06/09/2023 14:34:12 Final Observation Date Value Abnormality Reference (Units ) Status BUN 06/09/2023 14:34:12 20 6-20 (mg/dL) Final Creatinine 06/09/2023 14:34:12 1.5 Above high normal 0.5-1.0 (mg/dL) Final Glomerular filtration rate/1.73 sq M.predicted [Volume Rate/Area] in Serum, Plasma or Blood by Creatinine-based formula (CKD-EPI) 06/09/2023 14:34:12 40 Below low normal >=60 (mL/min) Final eGFR is calculated based on the CKD-EPI 2020 equation Sodium 06/09/2023 14:34:12 132 Below low normal 135 -146 (mmol/L) Final Potassium 06/09/2023 14:34:12 4.1 3.5-5.1 (m mol/L) Final Cl 06/09/2023 14:34:12 98 98-107 (mm ol/L) Final CO2 06/09/2023 14:34:12 7 Below low normal 22- 32 (mmol/L) Final Anion gap 06/09/2023 14:34:12 27 Above high normal 7- 15 (mmol/L) Final Glucose 06/09/2023 14:34:12 537 Above upper panic li mits 70-120 (mg/dL) Final Calcium 06/09/2023 14:34:12 7.2 Below low normal 8.4 -10.2 (mg/dL) Final Performing Location LAB[facility]ATORY [facility] [place] [address] [place] [address]
--- OUTSIDE RECORDS SUMMARY | 2023-06-11 01:38 | External Medical Summary ---
Author Name Unknown Address Unknown Organization K01:[place] [facility] [place] [address] [facility] [place] [address] Laboratory Report Ordering Provider Test Date Status BJ WHALEY 06/09/2023 08:24:00 Final Observation Date Value Abnormality Reference (Units) Status Body temperature 06/09/2023 08:24:00 37.0 (C) Final pH of Venous blood 06/09/2023 08:24:00 7.171 Below lower panic limits 7.320-7.430 (units) Final Carbon dioxide [Partial pressure] in Venous blood 06/09/2023 08:24:00 52.8 40.0-60.0 (mmHg) Final Oxygen [Partial pressure] in Venous blood 06/09/2023 08:24:00 33.6 25.0-50.0 (mmHg) Final Base excess, Capillary 06/09/2023 08:24:00 -9.0 Below low normal -2.0-2.0 (mmol/L) Final Hemoglobin [Mass/volume] in Blood by Oximetry 06/09/2023 08:24:00 7.6 Below low normal 12.0-15.3 (g/dL) Final Oxyhemoglobin, Venous (FO2HB) 06/09/2023 08:24:00 45.3 40.0-85.0 (% total Hgb) Final Carboxyhemoglobin 06/09/2023 08:24:00 0.4 <=1.5 (% total Hgb) Final Smokers: 0-9.0 % Methemoglobin 06/09/2023 08:24:00 1.1 <= 1.5 (% total Hgb) Final Deoxyhemoglobin/Hemoglo bin.total in Venous blood 06/09/2023 08:24:00 53.2 (% total Hgb) Final Oxygen content in Venous blood 06/09/2023 08:24:00 4.9 Below low normal 7.0-18.0 (%vol) F inal Bicarbonate, Venous, POC (i-STAT) 06/09/2023 08:24:00 18.5 Below low normal 23.0-31.0 (mmol/L) Final Performing Location [place] [facility] [place] [address] [facility] [address]
--- OUTSIDE RECORDS SUMMARY | 2023-06-11 01:38 | External Medical Summary ---
Author Name Unknown Address Unknown Organization K01:[place] [facility] [place] [address] [place] [address] Laboratory Report Ordering Provider Test Date Status RAY GARCÍA 06/09/2023 08:24:00 Final Exclude Heart Failure: <300 pg/mL
Diagnose Heart Failure:
Age <50 yr: >450 pg/mL
50-75 yr: >900 pg/mL
>75 yr: >1800 pg/mL
GFR is 30-59 mL/min: >1200 pg/mL or Age- adjusted values
GFR <30 mL/min: do not use, not reliable

Prognostic threshold: 1000 pg/mL Observation Date Value Abnormality Reference (Units ) Status BNP, Pro-hormone 06/09/2023 08:24:00 6924 Above high no rmal <300 (pg/mL) Final Performing Location [place] [facility] [place] [address] [place] [address]
--- OUTSIDE RECORDS SUMMARY | 2023-06-11 01:38 | External Medical Summary ---
Author Name Unknown Address Unknown Organization K01:LABORATORY [place] [address] [facility] [address] Laboratory Report Ordering Provider Test Date Status JOHN HURTADO 06/09/2023 11:11:31 Final Observation Date Value Abnormality Reference (Units ) Status WBC, Total 06/09/2023 11:11:31 19.62 Above high normal 4.00-10.80 (K/uL) Final RBC 06/09/2023 11:11:31 2.02 3.85-5.15 (M/uL) Final Hemoglobin 06/09/2023 11:11:31 5.8 Below lower panic limits 12.0-15.3 (g/dL) Final HCT 06/09/2023 11:11:31 18.5 Below low normal 36.0-45.2 (%) Final MCV 06/09/2023 11:11:31 91.6 81.5-97.5 (fL) Final MCH 06/09/2023 11:11:31 28.7 27.0-34.0 (pg) Final MCHC 06/09/2023 11:11:31 31.4 32.0-36.0 (g/dL) Final RDW 06/09/2023 11:11:31 14.5 11.5-15.5 (%) Final Platelets 06/09/2023 11:11:31 193 140-400 (K/uL) Final MPV 06/09/2023 11:11:31 10.6 6.6-11.1 (fL) Final Nucleated erythrocytes/100 leukocytes [Ratio] in Blood by Automated count 06/09/2023 11:11:31 0 <=0 (/100 WBCs) Final Performing Location LABORATORY [facility] [place] - [address] [place] [address]
--- OUTSIDE RECORDS SUMMARY | 2023-06-11 01:38 | External Medical Summary ---
Author Name Unknown Address Unknown Organization K01:LABORATORY [facility] - [address] [place] [address] Laboratory Report Ordering Provider Test Date Status RAY GARCÍA 06/09/2023 08:24:00 Final Observation Date Value Abnormality Reference (Units ) Status Magnesium 06/09/2023 08:24:00 2.4 1.5-2.6 (m g/dL) Final Performing Location [facility] - [address] [facility] [address]
--- OUTSIDE RECORDS SUMMARY | 2023-06-11 01:38 | External Medical Summary ---
Author Name Unknown Address Unknown Organization K01:LABORATORY [facility] [place] - [address] [facility] [address] Laboratory Report Ordering Provider Test Date Status RAY GARCÍA 06/09/2023 08:24:00 Final Observation Date Value Abnormality Reference (Units ) Status Triglyceride 06/09/2023 08:24:00 62 <=174 ( mg/dL) Final Triglyceride Reference Range s (mg/dL):
<150 Acceptable
150-174 Borderline high
175-499 High
>=500 Very high Performing Location LABORATORY [facility] - [address] [place] [address]
--- OUTSIDE RECORDS SUMMARY | 2023-06-11 01:38 | External Medical Summary ---
Author Name Unknown Address Unknown Organization K01:LABORATORY [facility] [place] - [address] [place] [address] Laboratory Report Ordering Provider Test Date Status RAY GARCÍA 06/09/2023 08:24:00 Final Observation Date Value Abnormality Reference (Units ) Status Oxygen saturation in Venous blood 06/09/2023 08:24:00 46.0 40.0-85.0 (%) Final Performing Location LAB[facility] - [address] [place] [address]
--- OUTSIDE RECORDS SUMMARY | 2023-06-11 01:38 | External Medical Summary ---
Author Name Unknown Address Unknown Organization K01:LABORATORY [facility] - [address] [place] [address] Laboratory Report Ordering Provider Test Date Status RAY GARCÍA 06/09/2023 08:24:00 Final Observation Date Value Abnormality Reference (Units ) Status Lactic Acid 06/09/2023 08:24:00 10.7 Above upper panic limits 0.4-2.0 (mmol/L) Final Performing Location LABORATORY [facility] - [address] [place] [address]
--- OUTSIDE RECORDS SUMMARY | 2023-06-11 01:38 | External Medical Summary ---
Author Name Unknown Address Unknown Organization K01:[place]ORY [facility] [place] [address] [facility] [address] Laboratory Report Ordering Provider Test Date Status RAY GARCÍA 06/09/2023 07:26:29 Final Observation Date Value Abnormality Reference (Units) Status Body temperature 06/09/2023 07:26:29 37.0 (C) Final pH of Arterial blood 06/09/2023 07:26:29 7.155 Below lower panic limits 7.350-7.450 (units) Final Carbon dioxide [Partial pressure] in Arterial blood 06/09/2023 07:26:29 61.2 Above upper panic limits 35.0-45.0 (mmHg) Final Oxygen [Partial pressure] in Arterial blood 06/09/2023 07:26:29 38.7 Below lower panic limits 75.0-100.0 (mmHg) Final Base excess, Arterial 06/09/2023 07:26:29 -7.5 Below low normal -2.0-2.0 (mmol/L) Final Hemoglobin [Mass/volume] in Blood by Oximetry 06/09/2023 07:26:29 7.7 Below low normal 12.0-15.3 (g/dL) Final Oxyhemoglobin, Arterial (FO2HB) 06/09/2023 07:26:29 53.8 Below low normal 94.0-99.0 (% total Hgb) Final Carboxyhemoglobin 06/09/2023 07:26:29 0.7 <=1.5 (% total Hgb) Final Smokers: 0-9.0 % Methemoglobin 06/09/2023 07:26:29 1.0 <=1.5 (% total Hgb) Final Deoxyhemoglobin/Hemog lobin.total in Arterial blood 06/09/2023 07:26:29 44.5 Above high normal 0.0-5.0 (% total Hgb) Final Oxygen content in Arterial blood 06/09/2023 07:26:29 5.9 Below low normal 15.0-24.0 (%vol) Final Oxygen/Total gas setting [Volume Fraction] Ventilator 06/09/2023 07:26:29 Not Provided (%) Final O2 FLOW, [facility] - [facility] 06/09/2023 07:26:29 Not Provided (L/min) Final Bicarbonate, Venous, POC (i-STAT) 06/09/2023 07:26:29 20.7 Below low normal 23.0-31.0 (mmol/L) Final Performing Location LABORATORY [facility] [place] [address] [facility] [address]
--- OUTSIDE RECORDS SUMMARY | 2023-06-11 01:38 | External Medical Summary ---
Author Name Unknown Address Unknown Organization K01:LABORATORY [facility] [place] - [address] [place] [address] Laboratory Report Ordering Provider Test Date Status RAY GARCÍA 06/09/2023 08:24:00 Final Observation Date Value Abnormality Reference (Units ) Status Troponin T 06/09/2023 08:24:00 >[address] Above upper panic limits <=14 (ng/L) Final Performing Location LAB[facility] - [address] [place] [address]
--- OUTSIDE RECORDS SUMMARY | 2023-06-11 01:38 | External Medical Summary ---
Author Name Unknown Address Unknown Organization K01:LABORATORY [facility] [place] [facility] - [address] [place] [address] Laboratory Report Ordering Provider Test Date Status RAY GARCÍA 06/09/2023 08:24:00 Final Observation Date Value Abnormality Reference (Units ) Status ABO 06/09/2023 08:24:00 B Final RH 06/09/2023 08:24:00 Positive Final Performing Location LABORATORY [facility] [facility] - [address] [place] [address]
--- OUTSIDE RECORDS SUMMARY | 2023-06-11 01:38 | External Medical Summary ---
Author Name Unknown Address Unknown Organization K01:LABORATORY [facility] - [address] [place] [address] Laboratory Report Ordering Provider Test Date Status RAY GARCÍA 06/09/2023 08:24:00 Final Observation Date Value Abnormality Reference (Units ) Status Phosphate 06/09/2023 08:24:00 4.7 2.5-4.8 (m g/dL) Final Performing Location LAB[facility] - [address] [place] [address]
--- OUTSIDE RECORDS SUMMARY | 2023-06-11 01:38 | External Medical Summary ---
Author Name Unknown Address Unknown Organization K01:LABORATORY [facility] [place] - [address] [place] [address] Laboratory Report Ordering Provider Test Date Status RAY GARCÍA 06/09/2023 08:24:00 Final Observation Date Value Abnormality Reference (Units ) Status Lactic Acid 06/09/2023 08:24:00 10.8 Above upper panic limits 0.4-2.0 (mmol/L) Final Performing Location LABORATORY [facility] - [address] [place] [address]
--- OUTSIDE RECORDS SUMMARY | 2023-06-11 01:38 | External Medical Summary ---
Author Name Unknown Address Unknown Organization [id number]:LABORATORY [facility] [place] - [address] [place] [address] Laboratory Report Ordering Provider Test Date Status BJ WHALEY 06/09/2023 08:24:00 Final Observation Date Value Abnormality Reference (Units ) Status Triglyceride 06/09/2023 08:24:00 61 <=174 ( mg/dL) Final Triglyceride Reference Range s (mg/dL):
<150 Acceptable
150-174 Borderline high
175-499 High
>=500 Very high Cholesterol 06/09/2023 08:24:00 139 <200 (mg /dL) Final Total Cholesterol Reference Ranges (mg/dL):
<200 Desirable
200-239 Borderline high
>=240 High HDL 06/09/2023 08:24:00 28 Below low normal >49 (mg/dL) Final HDL Cholesterol Reference Ra nges (mg/dL):
>=60 High (Desirable)
<50 Low (Undesirable) For Females
<40 Low (Undesirable) For Males NON-HDL CHOLESTEROL 06/09/2023 08:24:00 111 <=159 (mg/dL) Final Non-HDL Cholesterol Referenc e Range (mg/dL):
<100 Target level for high risk ASCVD patient
<130 Optimal for general population
130-159 Near optimal for general population
160-189 Borderline High
190-219 High
>=220 Very High LDL, (calculated) 06/09/2023 08:24:00 99 <= 129 (mg/dL) Final LDL Cholesterol Reference Ra nges (mg/dL):
<70 Target level for high risk ASCVD patient
<100 Optimal for general population
100-129 Near optimal for general population
130-159 Borderline high
160-189 High
>=190 Very high Performing Location LABORATORY [facility] [place] - [address] [facility] [address]
--- OUTSIDE RECORDS SUMMARY | 2023-06-11 01:38 | External Medical Summary ---
Author Name Unknown Address Unknown Organization [id number]:LABORATORY [facility] [place] - [facility] [address] [place] [address] Laboratory Report Ordering Provider Test Date Status RAQUELRAY 06/09/2023 08:24:00 Final Observation Date Value Abnormality Reference (Units ) Status WBC, Total 06/09/2023 08:24:00 21.34 Above high normal 4.00-10.80 (K/uL) Final RBC 06/09/2023 08:24:00 2.63 3.85-5.15 (M/uL) Final Hemoglobin 06/09/2023 08:24:00 7.5 Below low normal 12.0-15.3 (g/dL) Final HCT 06/09/2023 08:24:00 24.3 Below low normal 36.0-45.2 (%) Final MCV 06/09/2023 08:24:00 92.4 81.5-97.5 (fL) Final MCH 06/09/2023 08:24:00 28.5 27.0-34.0 (pg) Final MCHC 06/09/2023 08:24:00 30.9 32.0-36.0 (g/dL) Final RDW 06/09/2023 08:24:00 14.6 11.5-15.5 (%) Final Platelets 06/09/2023 08:24:00 239 140-400 (K/uL) Final MPV 06/09/2023 08:24:00 10.7 6.6-11.1 (fL) Final Nucleated erythrocytes/100 leukocytes [Ratio] in Blood by Automated count 06/09/2023 08:24:00 0 <=0 (/100 WBCs) Final Performing Location LABORATORY [facility] [place] - [address] [place] [address]
--- OUTSIDE RECORDS SUMMARY | 2023-06-11 01:38 | External Medical Summary ---
Author Name Unknown Address Unknown Organization [id number]:LABORATORY [facility] [place] - [address] [facility] [address] Laboratory Report Ordering Provider Test Date Status RAQUELRAY 06/09/2023 08:24:00 Final Observation Date Value Abnormality Reference (Units ) Status BUN 06/09/2023 08:24:00 21 Above high normal 6-20 (mg/dL) Final Creatinine 06/09/2023 08:24:00 1.2 Above high normal 0.5-1.0 (mg/dL) Final Glomerular filtration rate/1.73 sq M.predicted [Volume Rate/Area] in Serum, Plasma or Blood by Creatinine-based formula (CKD-EPI) 06/09/2023 08:24:00 54 Below low normal >=60 (mL/min) Final eGFR is calculated based on the CKD-EPI 2020 equation Sodium 06/09/2023 08:24:00 138 135-146 (m mol/L) Final Potassium 06/09/2023 08:24:00 3.6 3.5-5.1 (m mol/L) Final Cl 06/09/2023 08:24:00 102 98-107 (mm ol/L) Final CO2 06/09/2023 08:24:00 18 Below low normal 22- 32 (mmol/L) Final Anion gap 06/09/2023 08:24:00 18 Above high normal 7- 15 (mmol/L) Final Glucose 06/09/2023 08:24:00 578 Above up per panic limits 70-120 (mg/dL) Final Albumin 06/09/2023 08:24:00 2.4 Below low normal 3.8 -5.0 (g/dL) Final AST (Aspartate aminotransferase) 06/09/2023 08:24:00 1172 Above high normal 10-35 (U/L) Final Alk Phos 06/09/2023 08:24:00 71 35-130 (U/ L) Final Bilirubin, Total 06/09/2023 08:24:00 0.3 <=1 .2 (mg/dL) Final Calcium 06/09/2023 08:24:00 7.8 Below low normal 8.4 -10.2 (mg/dL) Final Protein 06/09/2023 08:24:00 3.7 Below low normal 6.0 -8.3 (g/dL) Final ALT (Alanine aminotransferase) 06/09/2023 08:24:00 174 Above high normal 10-35 (U/L) Final Performing Location LABORATORY [facility] [place] - [address] [facility] [address]
--- OUTSIDE RECORDS SUMMARY | 2023-06-11 01:38 | External Medical Summary ---
Author Name Unknown Address Unknown Organization [id number]:LABORATORY [facility] [place] B LOOD [facility] - [address] [place] [address] Laboratory Report Ordering Provider Test Date Status RAY GARCÍA 06/09/2023 08:24:00 Final Observation Date Value Abnormality Reference (Units ) Status ABO 06/09/2023 08:24:00 B Final RH 06/09/2023 08:24:00 Positive Final RED BLOOD CELL ANTIBODY SCREEN 06/09/2023 08:24:00 Negative Final SPECIMEN EXPIRATION DATE 06/09/2023 08:24:00 06/12/2023 23:59 Final Performing Location LABORATORY [facility] [place] B[facility]OD [facility] - [address] [place] [id number]
== END 2023-06-09 08:35 | disposition short-term general hospital (02) | DRG 215 ==
LOC: ED 02:13 → CC 03:36 → EDINP 06-10 13:07